=== PATIENT | female | born 1955 | race Caucasian/White ===

== ENCOUNTER → 2016-08-08 | Outpatient (CLI) | payer MEDICARE, MEDICAID ==
[~2016-08-08] MED LIST: ACCUNEB 0.0.63 MG/3 INH; ALLOPURINOL100 MG PO; ALVESCO80 MCG/ACT; ALVESCO80 MCG/ACT IH; AMOXICILLIN500 M2 PO; AMOXICILLIN500 MG PO; ASTELIN NASAL S30 ML NAS; ATIVAN1 MG PO; AVELOX400 MG PO; BENADRYL25 M2 PO; CARDIZEM CD240 MG PO; CELEXA40 MG PO; CEPHALEXIN500 M1 PO; CHLOR-A-TAB4 MG PO; COMPAZINE10 MG; COUMADIN3 MG PO; COUMADIN5 M2 PO; Coumadin5 MG PO; DIFLUCAN200 MG PO; FIORICET 325 MG1 TAB PO; Fioricet 325 MG1 TAB PO; HYCODAN/HYDROMET5 ML PO; IMITREX100 MG; KEFLEX 500 MG E2 CAP PO; KLOR-CON; KLOR-CON M1010 MEQ PO; LOSARTAN POTASS25 MG PO; MAG-OX 400400 MG; MAGOX 400241.3 MG PO; MEDROL DOSEPAK4 MG PO; METOPROLOL SUCC50 MG PO; Nizoral 2%15 GM PO; OMEPRAZOLE40 MG; PROVENTIL0.09 MG/AC; PROVENTIL0.09 MG/AC IH; RANITIDINE300 MG PO; REQUIP0.5 MG; VICODIN 5/500 505 MG PO; VICODIN 500 MG-1 TAB PO; VISTARIL50 MG; VOLTAREN GEL1% TP; WARFARIN SODIUM4 MG; WELLBUTRIN XL300 MG PO; ZOCOR40 MG; ZYRTEC; ZYRTEC10 MG PO; [UNRECOGNIZED DRUG - OTHER] TP
[2016-08-08 09:33] LABS: BASO % 0.7 % (0.0-1.0); EOS # 0.2 10*3/uL (0.0-0.4); EOS % 3.5 % (1.0-4.0); HEMATOCRIT 40.3 % (37.0-47.0); HEMOGLOBIN 12.8 g/dl (12.0-16.0); LYMPH # 1.9 10*3/uL (1.3-4.4); LYMPH % 33.7 % (27.0-41.0); MEAN CELL VOLUME 95.7 fl (81.0-99.0); MEAN CORPUSCULAR HGB 30.4 pg (27.0-31.0); MEAN CORPUSCULAR HGB CONC 31.8 g/dl (33.0-37.0); MEAN PLATELET VOLUME 10.1 fl (9.6-12.3); MONO # 0.6 10*3/uL (0.1-1.0); MONO % 10.4 % (3.0-9.0); NEUT # 2.8 10*3/uL (2.3-7.9); NEUT % 51.5 % (47.0-73.0); PLATELET COUNT AUTOMATED 223 10*3/uL (130-400); RED BLOOD COUNT 4.21 10*6/uL (4.10-5.10); RED CELL DISTRI WIDTH 14.4 % (0-14.5); WHITE BLOOD COUNT 5.5 10*3/uL (4.8-10.8)
[2016-08-08 10:00] LABS: HEMOGLOBIN A1c 5.7 % (4.8-5.6)
[2016-08-08 10:05] LABS: ALBUMIN 3.7 gm/dl (3.1-4.5); ALKALINE PHOSPHATASE 74 U/L (45-117); BILIRUBIN, DIRECT < 0.1 mg/dL (0.0-0.2); BILIRUBIN, TOTAL 0.2 mg/dl (0.2-1.0); BUN 27 mg/dl (7-24); CARBON DIOXIDE 28 mmol/L (21-32); CHLORIDE 107 mmol/L (98-107); CHOLESTEROL 236 mg/dL (<200); EST GLOM FILT AFRICAN AMERICAN 57 ml/min; GLUCOSE 109 mg/dL (65-99); HDL CHOLESTEROL 37 mg/dl (40-60); LDL CHOLESTEROL 151 mg/dL (9-159); SGOT/AST 21 IU/L (3-35); SGPT/ALT 27 U/L (12-78); SODIUM 142 mmol/L (136-145); THYROXINE (T4) TOTAL 8.3 ug/dl (4.8-13.9); TOTAL PROTEIN 7.2 gm/dL (6.4-8.2); TRIGLYCERIDES 242 mg/dl (<150); VLDL CHOLESTEROL 48 mg/dL (6-40)
== END | disposition home or self-care (01) ==
LOC: LAB 08:59
PROVIDERS: Family Medicine
DX: E11.9 Type 2 diabetes mellitus without complications (principal); N28.9 Disorder of kidney and ureter, unspecified; E78.00 Pure hypercholesterolemia, unspecified

== ENCOUNTER → 2016-11-17 | Outpatient (CLI) | payer MEDICARE, MEDICAID ==
[2016-11-17 13:03] LABS: BASO # 0.1 10*3/uL (0.0-0.1); BASO % 0.8 % (0.0-1.0); EOS # 0.4 10*3/uL (0.0-0.4); EOS % 6.4 % (1.0-4.0); HEMATOCRIT 39.3 % (37.0-47.0); HEMOGLOBIN 13.1 g/dl (12.0-16.0); LYMPH # 1.3 10*3/uL (1.3-4.4); LYMPH % 21.9 % (27.0-41.0); MEAN CORPUSCULAR HGB 31.3 pg (27.0-31.0); MEAN CORPUSCULAR HGB CONC 33.3 g/dl (33.0-37.0); MEAN PLATELET VOLUME 9.7 fl (9.6-12.3); MONO # 0.6 10*3/uL (0.1-1.0); MONO % 10.1 % (3.0-9.0); NEUT # 3.6 10*3/uL (2.3-7.9); NEUT % 60.5 % (47.0-73.0); PLATELET COUNT AUTOMATED 230 10*3/uL (130-400); RED BLOOD COUNT 4.18 10*6/uL (4.10-5.10); RED CELL DISTRI WIDTH 14.7 % (0-14.5); WHITE BLOOD COUNT 5.9 10*3/uL (4.8-10.8)
[2016-11-17 13:31] LABS: ALBUMIN 4.1 gm/dl (3.1-4.5); BILIRUBIN, DIRECT 0.1 mg/dL (0.0-0.2); BILIRUBIN, TOTAL 0.6 mg/dl (0.2-1.0); POTASSIUM 4.4 mmol/L (3.5-5.1); TOTAL PROTEIN 7.5 gm/dL (6.4-8.2)
[2016-11-17 13:53] LABS: HEMOGLOBIN A1c 5.6 % (4.8-5.6)
== END | disposition home or self-care (01) ==
LOC: LAB 12:42
PROVIDERS: Family Medicine
DX: E11.9 Type 2 diabetes mellitus without complications (principal); N28.9 Disorder of kidney and ureter, unspecified

== ENCOUNTER → 2016-11-20 | Outpatient (CLI) | payer MEDICARE, MEDICAID | END | disposition home or self-care (01) | LOC: CARD 00:11 | DX: I48.0 Paroxysmal atrial fibrillation (principal); I42.8 Other cardiomyopathies; E78.2 Mixed hyperlipidemia; I08.2 Rheumatic disorders of both aortic and tricuspid valves; Z95.810 Presence of automatic (implantable) cardiac defibrillator ==

== ENCOUNTER → 2017-02-20 | Outpatient (CLI) | payer MEDICARE, MEDICAID ==
[2017-02-20 12:21] LABS: BILIRUBIN NEGATIVE (NEGATIVE); BLOOD NEGATIVE (NEGATIVE); CLARITY SL CLOUDY (CLEAR); COLOR YELLOW (YELLOW); GLUCOSE NEGATIVE (NEGATIVE); KETONE NEGATIVE (NEGATIVE); LEUKO ESTERASE NEGATIVE (NEGATIVE); NITRITE NEGATIVE (NEGATIVE); PROTEIN NEGATIVE (NEGATIVE); SPECIFIC GRAVITY <= 1.005 (1.005-1.030); UROBILINOGEN 0.2 E.U./dl (0.2-1.0)
[2017-02-20 12:26] LABS: BASO % 0.7 % (0.0-1.0); EOS # 0.5 10*3/uL (0.0-0.4); EOS % 8.8 % (1.0-4.0); HEMATOCRIT 38.5 % (37.0-47.0); HEMOGLOBIN 12.7 g/dl (12.0-16.0); LYMPH # 1.5 10*3/uL (1.3-4.4); LYMPH % 26.1 % (27.0-41.0); MEAN CELL VOLUME 92.8 fl (81.0-99.0); MEAN CORPUSCULAR HGB 30.6 pg (27.0-31.0); MEAN PLATELET VOLUME 9.8 fl (9.6-12.3); MONO # 0.5 10*3/uL (0.1-1.0); MONO % 8.2 % (3.0-9.0); NEUT # 3.1 10*3/uL (2.3-7.9); NEUT % 55.8 % (47.0-73.0); PLATELET COUNT AUTOMATED 216 10*3/uL (130-400); RED BLOOD COUNT 4.15 10*6/uL (4.10-5.10); WHITE BLOOD COUNT 5.6 10*3/uL (4.8-10.8)
[2017-02-20 12:38] LABS: ALBUMIN 3.7 gm/dl (3.1-4.5); BUN 18 mg/dl (7-24); CARBON DIOXIDE 27 mmol/L (21-32); CHLORIDE 102 mmol/L (98-107); EST GLOM FILT AFRICAN AMERICAN > 60 ml/min; GLUCOSE 97 mg/dL (65-99); MAGNESIUM 1.9 mg/dL (1.5-2.1); PHOSPHOROUS 3.3 mg/dL (2.5-4.9); POTASSIUM 4.5 mmol/L (3.5-5.1); SODIUM 136 mmol/L (136-145)
[2017-02-20 12:40] LABS: URINE TP/CRE RATIO 0.1 (<0.21)
[2017-02-20 12:47] LABS: BACTERIA 1+; URINE REFLEX COMMENT NO (NO)
[2017-02-20 13:37] LABS: PTH INTACT 20.1 pg/mL (14.0-72.0)
== END | disposition home or self-care (01) ==
LOC: LAB 11:33
PROVIDERS: Internal Medicine Nephrology
DX: N18.3 Chronic kidney disease, stage 3 (moderate) (principal); N25.81 Secondary hyperparathyroidism of renal origin; Z79.899 Other long term (current) drug therapy

== ENCOUNTER → 2017-02-28 | Outpatient (CLI) | payer MEDICARE, MEDICAID | END | disposition home or self-care (01) | LOC: US 02:49 | DX: N18.3 Chronic kidney disease, stage 3 (moderate) (principal) ==

== ENCOUNTER → 2017-08-08 | Outpatient (CLI) | payer MEDICARE, MEDICAID ==
[2017-08-08 10:34] LABS: BASO % 0.9 % (0.0-1.0); EOS # 0.2 10*3/uL (0.0-0.4); EOS % 4.3 % (1.0-4.0); HEMATOCRIT 40.3 % (37.0-47.0); HEMOGLOBIN 13.1 g/dl (12.0-16.0); LYMPH # 1.4 10*3/uL (1.3-4.4); LYMPH % 31.7 % (27.0-41.0); MEAN CELL VOLUME 93.5 fl (81.0-99.0); MEAN CORPUSCULAR HGB 30.4 pg (27.0-31.0); MEAN CORPUSCULAR HGB CONC 32.5 g/dl (33.0-37.0); MEAN PLATELET VOLUME 9.8 fl (9.6-12.3); MONO # 0.4 10*3/uL (0.1-1.0); MONO % 9.7 % (3.0-9.0); NEUT # 2.4 10*3/uL (2.3-7.9); NEUT % 53.2 % (47.0-73.0); PLATELET COUNT AUTOMATED 223 10*3/uL (130-400); RED BLOOD COUNT 4.31 10*6/uL (4.10-5.10); RED CELL DISTRI WIDTH 14.5 % (0-14.5); WHITE BLOOD COUNT 4.4 10*3/uL (4.8-10.8)
[2017-08-08 10:51] LABS: ALBUMIN 3.8 gm/dl (3.1-4.5); ALKALINE PHOSPHATASE 72 U/L (45-117); BILIRUBIN, DIRECT < 0.1 mg/dL (0.0-0.2); BUN 28 mg/dl (7-24); CHLORIDE 105 mmol/L (98-107); CHOLESTEROL 236 mg/dL (<200); CREATININE 1.26 mg/dL (0.55-1.02); HDL CHOLESTEROL 44 mg/dl (40-60); LDL CHOLESTEROL 151 mg/dL (9-159); POTASSIUM 4.3 mmol/L (3.5-5.1); SGOT/AST 21 IU/L (3-35); SGPT/ALT 25 U/L (12-78); SODIUM 139 mmol/L (136-145); TOTAL PROTEIN 7.7 gm/dL (6.4-8.2); TRIGLYCERIDES 203 mg/dl (<150); VLDL CHOLESTEROL 41 mg/dL (6-40)
== END | disposition home or self-care (01) ==
LOC: LAB 09:54
PROVIDERS: Family Medicine
DX: N28.9 Disorder of kidney and ureter, unspecified (principal); E11.9 Type 2 diabetes mellitus without complications; E55.9 Vitamin D deficiency, unspecified

== ENCOUNTER 2017-10-14 09:26 | Emergency (ER) | payer MEDICARE, MEDICAID ==
[~2017-10-14] VITALS: Ht 160 cm; Wt 99.8 kg
[2017-10-14 09:37] VITALS: BP 135/54
[2017-10-14] MEDS ORDERED: NORCO 5-325 TA1 EACH PO (12:07)
[2017-10-14] MEDS ORDERED: ULTRAM50 MG PO (12:15)
== END 2017-10-14 12:13 | disposition home or self-care (01) ==
LOC: ED 09:26
DX: S42.401A Unspecified fracture of lower end of right humerus, initial encounter for closed fracture (principal); S63.591A Other specified sprain of right wrist, initial encounter; S80.12XA Contusion of left lower leg, initial encounter; Z90.710 Acquired absence of both cervix and uterus; Z90.49 Acquired absence of other specified parts of digestive tract; Z98.890 Other specified postprocedural states; Z79.899 Other long term (current) drug therapy; Z88.1 Allergy status to other antibiotic agents; Z79.01 Long term (current) use of anticoagulants; Z88.8 Allergy status to other drugs, medicaments and biological substances; W00.0XXA Fall on same level due to ice and snow, initial encounter; Y93.89 Activity, other specified; Y92.89 Other specified places as the place of occurrence of the external cause; Y99.9 Unspecified external cause status

== ENCOUNTER → 2017-10-16 | Outpatient (CLI) | payer MEDICARE, MEDICAID ==
[~2017-10-16] MED LIST changes: +NORCO 5-325 TA1 EACH PO; +ULTRAM50 MG PO
== END | disposition home or self-care (01) ==
LOC: CT 13:02
DX: S42.401A Unspecified fracture of lower end of right humerus, initial encounter for closed fracture (principal); M25.421 Effusion, right elbow; X58.XXXA Exposure to other specified factors, initial encounter; Y93.89 Activity, other specified; Y92.89 Other specified places as the place of occurrence of the external cause; Y99.8 Other external cause status

== ENCOUNTER → 2017-10-25 | Outpatient (CLI) | payer MEDICARE, MEDICAID ==
[2017-10-25 17:01] LABS: BUN 21 mg/dl (7-24); CHLORIDE 107 mmol/L (98-107); CREATININE 1.09 mg/dL (0.55-1.02); SODIUM 142 mmol/L (136-145)
== END | disposition home or self-care (01) ==
LOC: LAB 16:24
PROVIDERS: Family Medicine
DX: N18.9 Chronic kidney disease, unspecified (principal)

== ENCOUNTER → 2017-12-10 | Outpatient (CLI) | payer MEDICARE, MEDICAID | END | disposition home or self-care (01) | LOC: LAB 14:05 | DX: E11.9 Type 2 diabetes mellitus without complications (principal); E55.9 Vitamin D deficiency, unspecified; M19.042 Primary osteoarthritis, left hand; M19.041 Primary osteoarthritis, right hand ==

== ENCOUNTER → 2018-05-03 | Outpatient (CLI) | payer OTHER ==
[~2018-05-03] MED LIST changes: +DOXYCYCLINE100 M3 PO
== END | disposition home or self-care (01) ==
LOC: US 12:57
DX: M79.641 Pain in right hand (principal)

== ENCOUNTER → 2018-06-21 | Outpatient (CLI) | payer OTHER ==
[2018-06-21 11:54] LABS: BASO % 0.9 % (0.0-1.0); EOS # 0.3 10*3/uL (0.0-0.4); EOS % 6.5 % (1.0-4.0); HEMATOCRIT 40.4 % (37.0-47.0); HEMOGLOBIN 12.6 g/dl (12.0-16.0); LYMPH # 1.2 10*3/uL (1.3-4.4); LYMPH % 26.2 % (27.0-41.0); MEAN CELL VOLUME 97.1 fl (81.0-99.0); MEAN CORPUSCULAR HGB 30.3 pg (27.0-31.0); MEAN CORPUSCULAR HGB CONC 31.2 g/dl (33.0-37.0); MEAN PLATELET VOLUME 9.5 fl (9.6-12.3); MONO # 0.5 10*3/uL (0.1-1.0); MONO % 11.2 % (3.0-9.0); NEUT # 2.6 10*3/uL (2.3-7.9); NEUT % 54.8 % (47.0-73.0); PLATELET COUNT AUTOMATED 234 10*3/uL (130-400); RED BLOOD COUNT 4.16 10*6/uL (4.10-5.10); RED CELL DISTRI WIDTH 14.6 % (0-14.5); WHITE BLOOD COUNT 4.7 10*3/uL (4.8-10.8)
[2018-06-21 12:09] LABS: ALBUMIN 3.5 gm/dl (3.1-4.5); ALKALINE PHOSPHATASE 72 U/L (45-117); BILIRUBIN, DIRECT < 0.1 mg/dL (0.0-0.2); BUN 21 mg/dl (7-24); CHLORIDE 106 mmol/L (98-107); CREATININE 1.16 mg/dL (0.55-1.02); FREE T4 0.89 ng/dl (0.76-1.46); POTASSIUM 4.2 mmol/L (3.5-5.1); SGOT/AST 24 IU/L (3-35); SGPT/ALT 31 U/L (12-78); SODIUM 140 mmol/L (136-145); TOTAL PROTEIN 7.5 gm/dL (6.4-8.2)
== END | disposition home or self-care (01) ==
LOC: LAB 10:58
PROVIDERS: Family Medicine
DX: E11.9 Type 2 diabetes mellitus without complications (principal); N28.9 Disorder of kidney and ureter, unspecified; E55.9 Vitamin D deficiency, unspecified; E03.9 Hypothyroidism, unspecified; Z79.01 Long term (current) use of anticoagulants

== ENCOUNTER → 2018-07-03 | Outpatient (CLI) | payer OTHER ==
[2018-07-03 11:54] LABS: INTERNATIONAL NORM RATIO 3.2 (2.0-3.5)
== END | disposition home or self-care (01) ==
LOC: LAB 10:43
PROVIDERS: Internal Medicine Clinical Cardiac Electrophysiology
DX: I48.0 Paroxysmal atrial fibrillation (principal)

== ENCOUNTER → 2018-07-30 | Outpatient (CLI) | payer OTHER ==
[2018-07-30 12:49] LABS: INTERNATIONAL NORM RATIO 2.4 (2.0-3.5)
== END | disposition home or self-care (01) ==
LOC: LAB 09:16
PROVIDERS: Internal Medicine Clinical Cardiac Electrophysiology
DX: I48.0 Paroxysmal atrial fibrillation (principal)

== ENCOUNTER → 2018-08-06 | Outpatient (CLI) | payer OTHER ==
[2018-08-06 11:34] LABS: INTERNATIONAL NORM RATIO 1.5 (2.0-3.5)
== END | disposition home or self-care (01) ==
LOC: LAB 02:13
PROVIDERS: Internal Medicine Clinical Cardiac Electrophysiology
DX: I48.0 Paroxysmal atrial fibrillation (principal)

== ENCOUNTER → 2018-12-26 | Outpatient (CLI) | payer OTHER ==
[2018-12-26 14:15] LABS: BASO # 0.1 10*3/uL (0.0-0.1); BASO % 1.2 % (0.0-1.0); EOS # 0.3 10*3/uL (0.0-0.4); EOS % 5.5 % (1.0-4.0); HEMATOCRIT 42.5 % (37.0-47.0); HEMOGLOBIN 13.5 g/dl (12.0-16.0); LYMPH # 1.7 10*3/uL (1.3-4.4); LYMPH % 32.9 % (27.0-41.0); MEAN CELL VOLUME 95.7 fl (81.0-99.0); MEAN CORPUSCULAR HGB 30.4 pg (27.0-31.0); MEAN CORPUSCULAR HGB CONC 31.8 g/dl (33.0-37.0); MEAN PLATELET VOLUME 9.9 fl (9.6-12.3); MONO # 0.5 10*3/uL (0.1-1.0); MONO % 10.3 % (3.0-9.0); NEUT # 2.5 10*3/uL (2.3-7.9); NEUT % 49.9 % (47.0-73.0); PLATELET COUNT AUTOMATED 240 10*3/uL (130-400); RED BLOOD COUNT 4.44 10*6/uL (4.10-5.10); RED CELL DISTRI WIDTH 14.2 % (0-14.5); WHITE BLOOD COUNT 5.1 10*3/uL (4.8-10.8)
[2018-12-26 14:41] LABS: ALBUMIN 4.1 gm/dl (3.1-4.5); ALKALINE PHOSPHATASE 74 U/L (45-117); BILIRUBIN, DIRECT < 0.1 mg/dL (0.0-0.2); BUN 25 mg/dl (7-24); CHLORIDE 106 mmol/L (98-107); CHOLESTEROL 232 mg/dL (<200); CREATININE 1.11 mg/dL (0.55-1.02); HDL CHOLESTEROL 46 mg/dl (40-60); LDL CHOLESTEROL 144 mg/dL (9-159); POTASSIUM 4.2 mmol/L (3.5-5.1); SGOT/AST 24 IU/L (3-35); SGPT/ALT 28 U/L (12-78); SODIUM 138 mmol/L (136-145); THYROXINE (T4) TOTAL 7.8 ug/dl (4.8-13.9); TOTAL PROTEIN 8.2 gm/dL (6.4-8.2); TRIGLYCERIDES 210 mg/dl (<150); VLDL CHOLESTEROL 42 mg/dL (6-40)
== END | disposition home or self-care (01) ==
LOC: LAB 13:10
PROVIDERS: Family Medicine
DX: M47.816 Spondylosis without myelopathy or radiculopathy, lumbar region (principal); E55.9 Vitamin D deficiency, unspecified; I95.9 Hypotension, unspecified; R73.9 Hyperglycemia, unspecified; R25.2 Cramp and spasm; Z79.899 Other long term (current) drug therapy

== ENCOUNTER → 2019-04-07 | Outpatient (CLI) | payer MEDICARE, MEDICAID ==
[2019-04-07 10:24] LABS: BILIRUBIN NEGATIVE (NEGATIVE); BLOOD TRACE-LYSED (NEGATIVE); CLARITY SL CLOUDY (CLEAR); COLOR YELLOW (YELLOW); GLUCOSE NEGATIVE (NEGATIVE); KETONE NEGATIVE (NEGATIVE); LEUKO ESTERASE 2+ (NEGATIVE); NITRITE NEGATIVE (NEGATIVE); SPECIFIC GRAVITY <= 1.005 (1.005-1.030); UROBILINOGEN 0.2 E.U./dl (0.2-1.0)
[2019-04-07 10:32] LABS: BASO # 0.1 10*3/uL (0.0-0.1); BASO % 1.4 % (0.0-1.0); EOS # 0.4 10*3/uL (0.0-0.4); HEMATOCRIT 41.8 % (37.0-47.0); HEMOGLOBIN 13.3 g/dl (12.0-16.0); LYMPH # 1.2 10*3/uL (1.3-4.4); LYMPH % 24.4 % (27.0-41.0); MEAN CELL VOLUME 95.9 fl (81.0-99.0); MEAN CORPUSCULAR HGB 30.5 pg (27.0-31.0); MEAN CORPUSCULAR HGB CONC 31.8 g/dl (33.0-37.0); MEAN PLATELET VOLUME 9.6 fl (9.6-12.3); MONO # 0.5 10*3/uL (0.1-1.0); MONO % 9.8 % (3.0-9.0); NEUT # 2.8 10*3/uL (2.3-7.9); PLATELET COUNT AUTOMATED 243 10*3/uL (130-400); RED BLOOD COUNT 4.36 10*6/uL (4.10-5.10); RED CELL DISTRI WIDTH 14.6 % (0-14.5)
[2019-04-07 10:38] LABS: BACTERIA 2+; WBC TNTC wbc/hpf (0-5)
[2019-04-07 10:46] LABS: URINE CREATININE RANDOM 39.1 mg/dL
[2019-04-07 10:58] LABS: ALBUMIN 4.1 gm/dl (3.1-4.5); CREATININE 1.15 mg/dL (0.55-1.02); PHOSPHOROUS 3.1 mg/dL (2.5-4.9); POTASSIUM 4.2 mmol/L (3.5-5.1)
[2019-04-07 11:18] LABS: PTH INTACT 104.1 pg/mL (18.5-88.0); VITAMIN D, 25-HYDROXY 29.8 ng/mL (30-100)
== END | disposition home or self-care (01) ==
LOC: LAB 09:43
PROVIDERS: Internal Medicine Nephrology
DX: N25.81 Secondary hyperparathyroidism of renal origin (principal); N18.3 Chronic kidney disease, stage 3 (moderate)

== ENCOUNTER 2019-05-01 12:40 | Emergency (ER) | payer MEDICARE, MEDICAID ==
[~2019-05-01] VITALS: Ht 160 cm; Wt 108.9 kg
[2019-05-01 12:44] VITALS: BP 132/63
[2019-05-01 13:08] LABS: BASO # 0.1 10*3/uL (0.0-0.1); BASO % 0.7 % (0.0-1.0); EOS # 0.7 10*3/uL (0.0-0.4); HEMOGLOBIN 13.2 g/dl (12.0-16.0); LYMPH # 1.1 10*3/uL (1.3-4.4); LYMPH % 15.6 % (27.0-41.0); MEAN CELL VOLUME 95.6 fl (81.0-99.0); MEAN CORPUSCULAR HGB 30.8 pg (27.0-31.0); MEAN CORPUSCULAR HGB CONC 32.2 g/dl (33.0-37.0); MEAN PLATELET VOLUME 9.4 fl (9.6-12.3); MONO # 0.5 10*3/uL (0.1-1.0); MONO % 7.1 % (3.0-9.0); NEUT # 4.5 10*3/uL (2.3-7.9); NEUT % 66.3 % (47.0-73.0); PLATELET COUNT AUTOMATED 222 10*3/uL (130-400); RED BLOOD COUNT 4.29 10*6/uL (4.10-5.10); RED CELL DISTRI WIDTH 14.6 % (0-14.5); WHITE BLOOD COUNT 6.8 10*3/uL (4.8-10.8)
[2019-05-01 13:22] LABS: ALBUMIN 3.6 gm/dl (3.1-4.5); ALKALINE PHOSPHATASE 84 U/L (45-117); BUN 18 mg/dl (7-24); CHLORIDE 106 mmol/L (98-107); CREATININE 1.24 mg/dL (0.55-1.02); POTASSIUM 3.7 mmol/L (3.5-5.1); SGOT/AST 18 IU/L (3-35); SGPT/ALT 26 U/L (12-78); SODIUM 140 mmol/L (136-145); TOTAL PROTEIN 7.7 gm/dL (6.4-8.2)
[2019-05-01 13:29] LABS: TROPONIN I < 0.015 ng/ml (<0.045)
[2019-05-01 13:32] LABS: ACT PARTIAL THROMBO TIME 43.4 SECONDS (20.0-32.1); INTERNATIONAL NORM RATIO 2.9 (2.0-3.5)
[2019-05-01] MEDS ORDERED: PREDNISONE50 MG PO (15:26)
[2019-05-01] MEDS ORDERED: TESSALON PERLE100 MG PO (15:33)
[2019-05-01] MEDS ORDERED: PROVENTIL HFA6.7 GM INH (15:33)
[2019-05-01] MEDS ORDERED: Ipratropium Brom3 ML INH (15:33)
== END 2019-05-01 15:41 | disposition home or self-care (01) ==
LOC: ED 12:40
PROVIDERS: Emergency Medicine
DX: J20.9 Acute bronchitis, unspecified (principal); J45.909 Unspecified asthma, uncomplicated; K21.9 Gastro-esophageal reflux disease without esophagitis; E66.9 Obesity, unspecified; Z88.8 Allergy status to other drugs, medicaments and biological substances; Z88.1 Allergy status to other antibiotic agents; Z91.041 Radiographic dye allergy status; Z79.01 Long term (current) use of anticoagulants; Z79.899 Other long term (current) drug therapy; Z90.710 Acquired absence of both cervix and uterus; Z90.49 Acquired absence of other specified parts of digestive tract

== ENCOUNTER → 2019-05-29 | Outpatient (CLI) | payer MEDICARE, MEDICAID ==
[~2019-05-29] MED LIST changes: +Ipratropium Brom3 ML INH; +PREDNISONE50 MG PO; +PROVENTIL HFA6.7 GM INH; +TESSALON PERLE100 MG PO
[2019-05-29 10:45] LABS: INTERNATIONAL NORM RATIO 2.3 (2.0-3.5)
== END | disposition home or self-care (01) ==
LOC: LAB 09:35
PROVIDERS: Internal Medicine Clinical Cardiac Electrophysiology
DX: I48.0 Paroxysmal atrial fibrillation (principal)

== ENCOUNTER → 2019-06-09 | Outpatient (CLI) | payer MEDICARE, MEDICAID ==
[2019-06-09 14:21] LABS: BASO # 0.1 10*3/uL (0.0-0.1); BASO % 1.3 % (0.0-1.0); EOS # 0.4 10*3/uL (0.0-0.4); EOS % 7.6 % (1.0-4.0); HEMATOCRIT 41.6 % (37.0-47.0); HEMOGLOBIN 13.2 g/dl (12.0-16.0); LYMPH # 1.4 10*3/uL (1.3-4.4); LYMPH % 26.3 % (27.0-41.0); MEAN CELL VOLUME 95.9 fl (81.0-99.0); MEAN CORPUSCULAR HGB 30.4 pg (27.0-31.0); MEAN CORPUSCULAR HGB CONC 31.7 g/dl (33.0-37.0); MEAN PLATELET VOLUME 9.9 fl (9.6-12.3); MONO # 0.7 10*3/uL (0.1-1.0); MONO % 12.5 % (3.0-9.0); NEUT # 2.8 10*3/uL (2.3-7.9); NEUT % 51.9 % (47.0-73.0); PLATELET COUNT AUTOMATED 251 10*3/uL (130-400); RED BLOOD COUNT 4.34 10*6/uL (4.10-5.10); RED CELL DISTRI WIDTH 14.1 % (0-14.5); WHITE BLOOD COUNT 5.4 10*3/uL (4.8-10.8)
[2019-06-09 14:35] LABS: INTERNATIONAL NORM RATIO 3.2 (2.0-3.5)
[2019-06-09 14:49] LABS: ALBUMIN 3.8 gm/dl (3.1-4.5); ALKALINE PHOSPHATASE 83 U/L (45-117); BILIRUBIN, DIRECT 0.1 mg/dL (0.0-0.2); BUN 23 mg/dl (7-24); CHLORIDE 106 mmol/L (98-107); CREATININE 1.07 mg/dL (0.55-1.02); SGOT/AST 22 IU/L (3-35); SGPT/ALT 27 U/L (12-78); SODIUM 138 mmol/L (136-145); TOTAL PROTEIN 7.8 gm/dL (6.4-8.2)
== END | disposition home or self-care (01) ==
LOC: LAB 13:16
PROVIDERS: Family Medicine; Internal Medicine Clinical Cardiac Electrophysiology
DX: I48.0 Paroxysmal atrial fibrillation (principal); I10 Essential (primary) hypertension; E11.9 Type 2 diabetes mellitus without complications

== ENCOUNTER → 2019-06-25 | Outpatient (CLI) | payer MEDICARE, MEDICAID | END | disposition home or self-care (01) | LOC: CARD 09:46 | DX: I08.1 Rheumatic disorders of both mitral and tricuspid valves (principal); I42.0 Dilated cardiomyopathy; I10 Essential (primary) hypertension; R07.9 Chest pain, unspecified; Z95.2 Presence of prosthetic heart valve ==

== ENCOUNTER → 2019-11-19 | Outpatient (CLI) | payer MEDICARE, MEDICAID ==
[2019-11-19 14:54] LABS: INTERNATIONAL NORM RATIO 5.4 (2.0-3.5)
== END | disposition home or self-care (01) ==
LOC: LAB 12:44
PROVIDERS: Internal Medicine Clinical Cardiac Electrophysiology
DX: Z79.01 Long term (current) use of anticoagulants (principal); Z95.2 Presence of prosthetic heart valve

== ENCOUNTER → 2020-01-07 | Outpatient (CLI) | payer OTHER, MEDICAID ==
[~2020-01-07] MED LIST changes: +CYCLOBENZAPRINE10 MG PO
[2020-01-07 13:53] LABS: INTERNATIONAL NORM RATIO 4.7 (2.0-3.5)
== END | disposition home or self-care (01) ==
LOC: LAB 11:59
PROVIDERS: Internal Medicine Clinical Cardiac Electrophysiology
DX: Z79.01 Long term (current) use of anticoagulants (principal); Z95.2 Presence of prosthetic heart valve

== ENCOUNTER 2020-01-20 12:33 | Emergency (ER) | payer OTHER, MEDICAID ==
[~2020-01-20] VITALS: Ht 157.4 cm; Wt 111.1 kg
[~2020-01-20 12:33] MED LIST changes: -CYCLOBENZAPRINE10 MG PO
[2020-01-20 12:55] VITALS: BP 120/63
[2020-01-20] MEDS ORDERED: CYCLOBENZAPRINE10 MG PO (17:36)
== END 2020-01-20 17:34 | disposition home or self-care (01) ==
LOC: ED 12:33
DX: S89.91XA Unspecified injury of right lower leg, initial encounter (principal); M79.601 Pain in right arm; F17.200 Nicotine dependence, unspecified, uncomplicated; Z88.8 Allergy status to other drugs, medicaments and biological substances; Z88.1 Allergy status to other antibiotic agents; Z79.899 Other long term (current) drug therapy; W18.39XA Other fall on same level, initial encounter; Y93.89 Activity, other specified; Y92.89 Other specified places as the place of occurrence of the external cause; Y99.8 Other external cause status

== ENCOUNTER → 2020-02-11 | Outpatient (CLI) | payer MEDICARE, MEDICAID ==
[~2020-02-11] MED LIST changes: +CYCLOBENZAPRINE10 MG PO
[2020-02-11 14:00] LABS: INTERNATIONAL NORM RATIO 6.3 (2.0-3.5)
== END | disposition home or self-care (01) ==
LOC: LAB 12:33
PROVIDERS: Internal Medicine Clinical Cardiac Electrophysiology
DX: Z95.2 Presence of prosthetic heart valve (principal)

== ENCOUNTER → 2020-02-25 | Outpatient (CLI) | payer OTHER, MEDICAID ==
[2020-02-25 16:32] LABS: BASO # 0.1 10*3/uL (0.0-0.1); EOS # 0.3 10*3/uL (0.0-0.4); EOS % 6.6 % (1.0-4.0); HEMATOCRIT 39.6 % (37.0-47.0); LYMPH # 1.4 10*3/uL (1.3-4.4); LYMPH % 27.1 % (27.0-41.0); MEAN CELL VOLUME 95.4 fl (81.0-99.0); MEAN CORPUSCULAR HGB 30.1 pg (27.0-31.0); MEAN CORPUSCULAR HGB CONC 31.6 g/dl (33.0-37.0); MEAN PLATELET VOLUME 9.3 fl (9.6-12.3); MONO # 0.3 10*3/uL (0.1-1.0); MONO % 6.4 % (3.0-9.0); NEUT % 58.5 % (47.0-73.0); PLATELET COUNT AUTOMATED 231 10*3/uL (130-400); RED BLOOD COUNT 4.15 10*6/uL (4.10-5.10); RED CELL DISTRI WIDTH 13.9 % (0-14.5); WHITE BLOOD COUNT 5.2 10*3/uL (4.8-10.8)
[2020-02-25 16:37] LABS: BILIRUBIN NEGATIVE (NEGATIVE); BLOOD NEGATIVE (NEGATIVE); CLARITY CLEAR (CLEAR); COLOR YELLOW (YELLOW); GLUCOSE NEGATIVE (NEGATIVE); KETONE NEGATIVE (NEGATIVE); LEUKO ESTERASE TRACE (NEGATIVE); NITRITE NEGATIVE (NEGATIVE); SPECIFIC GRAVITY 1.015 (1.005-1.030); UROBILINOGEN 0.2 E.U./dl (0.2-1.0)
[2020-02-25 16:43] LABS: BACTERIA 2+; RBC 0-2 rbc/hpf (0-2)
[2020-02-25 16:44] LABS: ALBUMIN 3.5 gm/dl (3.1-4.5); CREATININE 1.14 mg/dL (0.55-1.02)
[2020-02-25 17:17] LABS: PTH INTACT 75.3 pg/mL (18.5-88.0); VITAMIN D, 25-HYDROXY 26.8 ng/mL (30-100)
[2020-02-25 18:32] LABS: INTERNATIONAL NORM RATIO 6.9 (2.0-3.5)
== END | disposition home or self-care (01) ==
LOC: LAB 16:04
PROVIDERS: Internal Medicine Clinical Cardiac Electrophysiology; Internal Medicine Nephrology
DX: N18.3 Chronic kidney disease, stage 3 (moderate) (principal); Z95.2 Presence of prosthetic heart valve; Z79.01 Long term (current) use of anticoagulants

== ENCOUNTER → 2020-03-11 | Outpatient (CLI) | payer OTHER, MEDICAID ==
[2020-03-11 16:42] LABS: INTERNATIONAL NORM RATIO 1.5 (2.0-3.5)
== END | disposition home or self-care (01) ==
LOC: LAB 15:16
PROVIDERS: Internal Medicine Clinical Cardiac Electrophysiology
DX: Z95.2 Presence of prosthetic heart valve (principal)

== ENCOUNTER → 2020-03-18 | Outpatient (CLI) | payer OTHER, MEDICAID ==
[2020-03-18 12:10] LABS: INTERNATIONAL NORM RATIO 2.1 (2.0-3.5)
== END | disposition home or self-care (01) ==
LOC: LAB 11:19
PROVIDERS: ATTEND Internal Medicine Clinical Cardiac Electrophysiology
DX: Z79.01 Long term (current) use of anticoagulants (principal)

== ENCOUNTER → 2020-03-23 | Outpatient (CLI) | payer OTHER, MEDICAID ==
[2020-03-23 16:26] LABS: BASO # 0.1 10*3/uL (0.0-0.1); BASO % 1.3 % (0.0-1.0); EOS # 0.3 10*3/uL (0.0-0.4); EOS % 5.8 % (1.0-4.0); HEMATOCRIT 41.1 % (37.0-47.0); LYMPH # 1.2 10*3/uL (1.3-4.4); LYMPH % 25.1 % (27.0-41.0); MEAN CELL VOLUME 93.8 fl (81.0-99.0); MEAN CORPUSCULAR HGB 29.9 pg (27.0-31.0); MEAN CORPUSCULAR HGB CONC 31.9 g/dl (33.0-37.0); MEAN PLATELET VOLUME 9.8 fl (9.6-12.3); MONO # 0.4 10*3/uL (0.1-1.0); MONO % 8.4 % (3.0-9.0); NEUT # 2.8 10*3/uL (2.3-7.9); NEUT % 59.2 % (47.0-73.0); PLATELET COUNT AUTOMATED 246 10*3/uL (130-400); RED BLOOD COUNT 4.38 10*6/uL (4.10-5.10); RED CELL DISTRI WIDTH 14.1 % (0-14.5); WHITE BLOOD COUNT 4.8 10*3/uL (4.8-10.8)
[2020-03-23 16:36] LABS: INTERNATIONAL NORM RATIO 3.4 (2.0-3.5)
[2020-03-23 16:41] LABS: ALBUMIN 3.8 gm/dl (3.1-4.5); ALKALINE PHOSPHATASE 85 U/L (45-117); CHOLESTEROL 245 mg/dL (<200); HDL CHOLESTEROL 41 mg/dl (40-60); LDL CHOLESTEROL 162 mg/dL (9-159); SGOT/AST 19 IU/L (3-35); SGPT/ALT 23 U/L (12-78); THYROXINE (T4) TOTAL 7.1 ug/dl (4.8-13.9); TRIGLYCERIDES 210 mg/dl (<150); VLDL CHOLESTEROL 42 mg/dL (6-40)
[2020-03-23 16:49] LABS: BILIRUBIN, DIRECT < 0.1 mg/dL (0.0-0.2)
== END | disposition home or self-care (01) ==
LOC: LAB 15:49
PROVIDERS: Internal Medicine Clinical Cardiac Electrophysiology; ATTEND Family Medicine
DX: E11.9 Type 2 diabetes mellitus without complications (principal); E78.2 Mixed hyperlipidemia; Z79.01 Long term (current) use of anticoagulants; Z95.2 Presence of prosthetic heart valve

== ENCOUNTER → 2020-04-02 | Outpatient (CLI) | payer OTHER, MEDICAID ==
[2020-04-02 12:09] LABS: INTERNATIONAL NORM RATIO 4.6 (2.0-3.5)
== END | disposition home or self-care (01) ==
LOC: LAB 10:53
PROVIDERS: ATTEND Internal Medicine Clinical Cardiac Electrophysiology
DX: Z79.01 Long term (current) use of anticoagulants (principal)

== ENCOUNTER 2020-04-06 10:06 | Emergency (ER) | payer OTHER, MEDICAID ==
[~2020-04-06] VITALS: Ht 157.4 cm; Wt 113.4 kg
[2020-04-06 10:20] VITALS: BP 131/70
== END 2020-04-06 12:58 | disposition home or self-care (01) ==
LOC: ED 10:06
DX: S40.011A Contusion of right shoulder, initial encounter (principal); S60.222A Contusion of left hand, initial encounter; Z88.1 Allergy status to other antibiotic agents; Z88.8 Allergy status to other drugs, medicaments and biological substances; Z79.899 Other long term (current) drug therapy; W18.09XA Striking against other object with subsequent fall, initial encounter; Y93.89 Activity, other specified; Y92.89 Other specified places as the place of occurrence of the external cause; Y99.8 Other external cause status

== ENCOUNTER → 2020-04-06 | Outpatient (CLI) | payer OTHER, MEDICAID ==
[2020-04-06 10:50] LABS: INTERNATIONAL NORM RATIO 6.2 (2.0-3.5)
== END | disposition home or self-care (01) ==
LOC: LAB 09:55
PROVIDERS: ATTEND Internal Medicine Clinical Cardiac Electrophysiology
DX: Z79.01 Long term (current) use of anticoagulants (principal)

== ENCOUNTER → 2020-04-14 | Outpatient (CLI) | payer OTHER, MEDICAID ==
[2020-04-14 12:36] LABS: INTERNATIONAL NORM RATIO 2.5 (2.0-3.5)
== END | disposition home or self-care (01) ==
LOC: LAB 12:12
PROVIDERS: ATTEND Internal Medicine Clinical Cardiac Electrophysiology
DX: Z79.01 Long term (current) use of anticoagulants (principal); Z95.2 Presence of prosthetic heart valve

== ENCOUNTER → 2020-04-19 | Outpatient (CLI) | payer OTHER, MEDICAID ==
[2020-04-19 17:59] LABS: INTERNATIONAL NORM RATIO 7.9 (2.0-3.5)
== END | disposition home or self-care (01) ==
LOC: LAB 15:27
PROVIDERS: ATTEND Internal Medicine Clinical Cardiac Electrophysiology
DX: Z79.01 Long term (current) use of anticoagulants (principal); Z95.2 Presence of prosthetic heart valve

== ENCOUNTER → 2020-04-22 | Outpatient (CLI) | payer OTHER, MEDICAID ==
[2020-04-22 15:50] LABS: INTERNATIONAL NORM RATIO 2.3 (2.0-3.5)
== END | disposition home or self-care (01) ==
LOC: LAB 14:39
PROVIDERS: ATTEND Internal Medicine Clinical Cardiac Electrophysiology
DX: Z95.2 Presence of prosthetic heart valve (principal); Z79.01 Long term (current) use of anticoagulants

== ENCOUNTER → 2020-05-03 | Outpatient (CLI) | payer OTHER, MEDICAID ==
[2020-05-03 13:41] LABS: INTERNATIONAL NORM RATIO 2.2 (2.0-3.5)
== END | disposition home or self-care (01) ==
LOC: LAB 12:06
PROVIDERS: ATTEND Internal Medicine Clinical Cardiac Electrophysiology
DX: Z51.81 Encounter for therapeutic drug level monitoring (principal); Z79.01 Long term (current) use of anticoagulants; Z95.2 Presence of prosthetic heart valve

== ENCOUNTER → 2020-05-12 | Outpatient (CLI) | payer OTHER, MEDICAID ==
[2020-05-12 10:42] LABS: INTERNATIONAL NORM RATIO 2.3 (2.0-3.5)
== END | disposition home or self-care (01) ==
LOC: LAB 10:01
PROVIDERS: ATTEND Internal Medicine Clinical Cardiac Electrophysiology
DX: Z95.2 Presence of prosthetic heart valve (principal); Z79.01 Long term (current) use of anticoagulants

== ENCOUNTER → 2020-05-18 | Outpatient (CLI) | payer OTHER, MEDICAID ==
[2020-05-18 16:50] LABS: INTERNATIONAL NORM RATIO 3.2 (2.0-3.5)
== END | disposition home or self-care (01) ==
LOC: LAB 15:52
PROVIDERS: ATTEND Internal Medicine Clinical Cardiac Electrophysiology
DX: Z79.01 Long term (current) use of anticoagulants (principal); Z95.2 Presence of prosthetic heart valve

== ENCOUNTER 2020-05-25 05:19 | Emergency (ER) | payer OTHER, MEDICAID ==
[~2020-05-25] VITALS: Ht 157.4 cm; Wt 113.4 kg
[2020-05-25 05:23] VITALS: BP 127/79
[2020-05-25 06:18] LABS: BASO # 0.1 10*3/uL (0.0-0.1); EOS # 0.3 10*3/uL (0.0-0.4); EOS % 5.2 % (1.0-4.0); HEMATOCRIT 37.1 % (37.0-47.0); LYMPH # 1.9 10*3/uL (1.3-4.4); LYMPH % 32.4 % (27.0-41.0); MEAN CELL VOLUME 94.2 fl (81.0-99.0); MEAN CORPUSCULAR HGB 29.7 pg (27.0-31.0); MEAN CORPUSCULAR HGB CONC 31.5 g/dl (33.0-37.0); MEAN PLATELET VOLUME 9.5 fl (9.6-12.3); MONO # 0.7 10*3/uL (0.1-1.0); MONO % 11.2 % (3.0-9.0); NEUT # 2.9 10*3/uL (2.3-7.9); NEUT % 49.9 % (47.0-73.0); PLATELET COUNT AUTOMATED 241 10*3/uL (130-400); RED BLOOD COUNT 3.94 10*6/uL (4.10-5.10); RED CELL DISTRI WIDTH 14.7 % (0-14.5); WHITE BLOOD COUNT 5.8 10*3/uL (4.8-10.8)
[2020-05-25 06:28] LABS: CREATININE 1.2 mg/dL (0.55-1.02); POTASSIUM 4.2 mmol/L (3.5-5.1)
== END 2020-05-25 07:00 | disposition home or self-care (01) ==
LOC: ED 05:19
PROVIDERS: Emergency Medicine
DX: M10.072 Idiopathic gout, left ankle and foot (principal); K21.9 Gastro-esophageal reflux disease without esophagitis; I10 Essential (primary) hypertension; F41.9 Anxiety disorder, unspecified; E66.9 Obesity, unspecified; F32.9 Major depressive disorder, single episode, unspecified; I25.2 Old myocardial infarction; G43.909 Migraine, unspecified, not intractable, without status migrainosus; Z88.8 Allergy status to other drugs, medicaments and biological substances; Z88.1 Allergy status to other antibiotic agents; Z91.041 Radiographic dye allergy status; Z79.899 Other long term (current) drug therapy; Z79.01 Long term (current) use of anticoagulants; Z90.710 Acquired absence of both cervix and uterus; Z90.49 Acquired absence of other specified parts of digestive tract; Z95.0 Presence of cardiac pacemaker

== ENCOUNTER → 2020-07-22 | Outpatient (CLI) | payer OTHER, MEDICAID ==
[2020-07-22 12:40] LABS: INTERNATIONAL NORM RATIO 7.4 (2.0-3.5)
== END | disposition home or self-care (01) ==
LOC: LAB 11:14
PROVIDERS: ATTEND Internal Medicine Clinical Cardiac Electrophysiology
DX: Z95.2 Presence of prosthetic heart valve (principal); Z79.01 Long term (current) use of anticoagulants

== ENCOUNTER 2020-07-29 14:53 | Emergency (ER) | payer OTHER, MEDICAID ==
[2020-07-29 14:59] VITALS: BP 144/74
[2020-07-29 16:02] LABS: BASO # 0.1 10*3/uL (0.0-0.1); BASO % 0.9 % (0.0-1.0); EOS # 0.4 10*3/uL (0.0-0.4); EOS % 6.4 % (1.0-4.0); HEMATOCRIT 38.6 % (37.0-47.0); LYMPH # 1.1 10*3/uL (1.3-4.4); LYMPH % 19.6 % (27.0-41.0); MEAN CELL VOLUME 96.3 fl (81.0-99.0); MEAN CORPUSCULAR HGB 29.7 pg (27.0-31.0); MEAN CORPUSCULAR HGB CONC 30.8 g/dl (33.0-37.0); MEAN PLATELET VOLUME 9.2 fl (9.6-12.3); MONO # 0.6 10*3/uL (0.1-1.0); MONO % 9.5 % (3.0-9.0); NEUT # 3.7 10*3/uL (2.3-7.9); NEUT % 63.4 % (47.0-73.0); PLATELET COUNT AUTOMATED 233 10*3/uL (130-400); RED BLOOD COUNT 4.01 10*6/uL (4.10-5.10); RED CELL DISTRI WIDTH 14.1 % (0-14.5); WHITE BLOOD COUNT 5.8 10*3/uL (4.8-10.8)
[2020-07-29 16:13] LABS: ACT PARTIAL THROMBO TIME 34.3 SECONDS (20.0-32.1); INTERNATIONAL NORM RATIO 1.5 (2.0-3.5)
[2020-07-29 16:14] LABS: CREATININE 1.42 mg/dL (0.55-1.02); POTASSIUM 4.4 mmol/L (3.5-5.1)
== END 2020-07-29 17:10 | disposition home or self-care (01) ==
LOC: ED 14:53
PROVIDERS: Emergency Medicine
DX: S16.1XXA Strain of muscle, fascia and tendon at neck level, initial encounter (principal); S66.911A Strain of unspecified muscle, fascia and tendon at wrist and hand level, right hand, initial encounter; S20.219A Contusion of unspecified front wall of thorax, initial encounter; V43.52XA Car driver injured in collision with other type car in traffic accident, initial encounter; Y93.89 Activity, other specified; Y92.89 Other specified places as the place of occurrence of the external cause; Y99.8 Other external cause status

== ENCOUNTER 2020-11-02 20:01 | Emergency (ER) | payer OTHER ==
[~2020-11-02] VITALS: Ht 165.1 cm; Wt 136.1 kg
[2020-11-02 21:04] VITALS: BP 153/61
[2020-11-02] MEDS ORDERED: NAPROXEN250 MG PO (21:42)
== END 2020-11-02 22:00 | disposition home or self-care (01) ==
LOC: ED 20:01
DX: R07.89 Other chest pain (principal); M79.632 Pain in left forearm; Z88.8 Allergy status to other drugs, medicaments and biological substances; Z91.041 Radiographic dye allergy status; Z79.899 Other long term (current) drug therapy; Z79.01 Long term (current) use of anticoagulants; Z98.890 Other specified postprocedural states; Y08.89XA Assault by other specified means, initial encounter; Y93.89 Activity, other specified; Y92.89 Other specified places as the place of occurrence of the external cause; Y99.8 Other external cause status

== ENCOUNTER → 2020-11-22 | Outpatient (CLI) | payer OTHER, MEDICAID ==
[~2020-11-22] MED LIST changes: +NAPROXEN250 MG PO
[2020-11-22 12:18] LABS: ALBUMIN 3.7 gm/dl (3.1-4.5); ALKALINE PHOSPHATASE 71 U/L (45-117); BILIRUBIN, DIRECT < 0.1 mg/dL (0.0-0.2); CHOLESTEROL 244 mg/dL (<200); HDL CHOLESTEROL 40 mg/dl (40-60); LDL CHOLESTEROL 163 mg/dL (9-159); SGOT/AST 20 IU/L (3-35); SGPT/ALT 27 U/L (12-78); TOTAL PROTEIN 7.5 gm/dL (6.4-8.2); TRIGLYCERIDES 203 mg/dl (<150); VLDL CHOLESTEROL 41 mg/dL (6-40)
== END | disposition home or self-care (01) ==
LOC: LAB 10:38
PROVIDERS: ATTEND Family Medicine
DX: E78.5 Hyperlipidemia, unspecified (principal)

== ENCOUNTER 2020-12-22 19:56 | Emergency (ER) | payer OTHER, MEDICAID ==
[~2020-12-22] VITALS: Ht 154.9 cm; Wt 108.9 kg
[2020-12-22 19:59] VITALS: BP 141/82
[2020-12-22 20:23] LABS: BASO # 0.1 10*3/uL (0.0-0.1); BASO % 0.8 % (0.0-1.0); EOS # 0.3 10*3/uL (0.0-0.4); EOS % 5.1 % (1.0-4.0); HEMATOCRIT 39.7 % (37.0-47.0); LYMPH # 1.4 10*3/uL (1.3-4.4); LYMPH % 23.9 % (27.0-41.0); MEAN CELL VOLUME 95.4 fl (81.0-99.0); MEAN CORPUSCULAR HGB 30.5 pg (27.0-31.0); MEAN PLATELET VOLUME 9.3 fl (9.6-12.3); MONO # 0.6 10*3/uL (0.1-1.0); MONO % 9.5 % (3.0-9.0); NEUT # 3.6 10*3/uL (2.3-7.9); NEUT % 60.2 % (47.0-73.0); PLATELET COUNT AUTOMATED 244 10*3/uL (130-400); RED BLOOD COUNT 4.16 10*6/uL (4.10-5.10); RED CELL DISTRI WIDTH 14.5 % (0-14.5)
[2020-12-22 20:35] LABS: BUN 23 mg/dl (7-24); CHLORIDE 106 mmol/L (98-107); CREATININE 1.05 mg/dL (0.55-1.02); POTASSIUM 3.9 mmol/L (3.5-5.1); SODIUM 138 mmol/L (136-145)
[2020-12-22 20:39] LABS: ACT PARTIAL THROMBO TIME 55.4 SECONDS (20.0-32.1)
[2020-12-22 20:46] LABS: INTERNATIONAL NORM RATIO 6.3 (2.0-3.5)
== END 2020-12-22 21:04 | disposition home or self-care (01) ==
LOC: ED 19:56
PROVIDERS: Emergency Medicine
DX: R79.1 Abnormal coagulation profile (principal); Z88.8 Allergy status to other drugs, medicaments and biological substances; Z91.013 Allergy to seafood; Z91.041 Radiographic dye allergy status; Z79.899 Other long term (current) drug therapy; Z90.711 Acquired absence of uterus with remaining cervical stump; Z98.890 Other specified postprocedural states

== ENCOUNTER 2021-01-18 20:16 | Emergency (ER) | payer OTHER, MEDICAID ==
[~2021-01-18] VITALS: Wt 111.1 kg
[2021-01-18 20:57] VITALS: BP 115/57
== END 2021-01-19 02:01 | disposition home or self-care (01) ==
LOC: ED 20:16
DX: G44.009 Cluster headache syndrome, unspecified, not intractable (principal); F41.9 Anxiety disorder, unspecified; K21.9 Gastro-esophageal reflux disease without esophagitis; M10.9 Gout, unspecified; Z88.8 Allergy status to other drugs, medicaments and biological substances; Z91.013 Allergy to seafood; Z79.899 Other long term (current) drug therapy; Z90.711 Acquired absence of uterus with remaining cervical stump; Z98.890 Other specified postprocedural states

== ENCOUNTER → 2021-01-20 | Outpatient (CLI) | payer OTHER, MEDICAID | END | disposition home or self-care (01) | LOC: LAB 13:36 | PROVIDERS: ATTEND Specialist | DX: M10.9 Gout, unspecified (principal) ==

== ENCOUNTER 2021-03-11 13:34 | Inpatient (IN) | payer OTHER, MEDICAID ==
[~2021-03-11] VITALS: Ht 163 cm; Wt 102.0 kg
[~2021-03-11 13:34] MED LIST changes: +METRONIDAZOLE500 M1 PO
[2021-03-11 13:54] VITALS: BP 98/52
[2021-03-11 14:52] LABS: HEMATOCRIT 35.1 % (37.0-47.0); MEAN CELL VOLUME 94.1 fl (81.0-99.0); MEAN CORPUSCULAR HGB 30.3 pg (27.0-31.0); MEAN CORPUSCULAR HGB CONC 32.2 g/dl (33.0-37.0); MEAN PLATELET VOLUME 8.9 fl (9.6-12.3); PLATELET COUNT AUTOMATED 408 10*3/uL (130-400); RED BLOOD COUNT 3.73 10*6/uL (4.10-5.10); RED CELL DISTRI WIDTH 15.1 % (0-14.5); WHITE BLOOD COUNT 8.5 10*3/uL (4.8-10.8)
[2021-03-11 15:09] LABS: ALBUMIN 2.9 gm/dl (3.1-4.5); ALKALINE PHOSPHATASE 93 U/L (45-117); BUN 21 mg/dl (7-24); CHLORIDE 106 mmol/L (98-107); CREATININE 1.51 mg/dL (0.55-1.02); LIPASE 121 U/L (73-393); POTASSIUM 4.4 mmol/L (3.5-5.1); SGOT/AST 34 IU/L (3-35); SGPT/ALT 46 U/L (12-78); SODIUM 135 mmol/L (136-145); TOTAL PROTEIN 7.8 gm/dL (6.4-8.2); TROPONIN I < 0.015 ng/ml (<0.045)
[2021-03-11 15:12] LABS: BASOPHILS 2 % (0-1); PLATELET SUFFICIENCY HIGH (NORMAL); TOTAL CELLS COUNTED 100 #CELLS
[2021-03-11 15:13] LABS: BURR CELLS FEW; OVALOCYTES FEW
[2021-03-11 15:49] LABS: INTERNATIONAL NORM RATIO 12.8 (2.0-3.5)
[2021-03-11 16:18] LABS: BILIRUBIN Negative (Negative); BLOOD 3+ (Negative); CLARITY Turbid (Clear); COLOR Yellow (Yellow); GLUCOSE Negative (Negative); KETONE Negative (Negative); LEUKO ESTERASE 3+ (Negative); NITRITE Positive (Negative); PH 5.5 (4.5-8.0)
[2021-03-11 16:23] LABS: BACTERIA 4+; MUCOUS TRACE; RBC 0-2 rbc/hpf (0-2); WBC TNTC wbc/hpf (0-5)
[2021-03-11 17:43] VITALS: BP 96/41
[2021-03-11 19:48] VITALS: BP 90/34; BP 92/40
[2021-03-11] MEDS ORDERED: ZETIA10 MG PO (20:28)
[2021-03-11 22:15] VITALS: BP 135/56
[2021-03-12] MEDS ORDERED: ALLOPURINOL300 MG PO (00:24)
[2021-03-12] MEDS ORDERED: VALSARTAN40 MG PO (00:24)
[2021-03-12] MEDS ORDERED: DULOXETINE HCL30 MG PO (00:26)
[2021-03-12] MEDS ORDERED: HYDROXYCHLOROQ200 M1 PO (00:28)
[2021-03-12 06:32] LABS: HEMATOCRIT 32.3 % (37.0-47.0); MEAN CELL VOLUME 96.4 fl (81.0-99.0); MEAN CORPUSCULAR HGB 29.9 pg (27.0-31.0); MEAN PLATELET VOLUME 9.1 fl (9.6-12.3); PLATELET COUNT AUTOMATED 385 10*3/uL (130-400); RED BLOOD COUNT 3.35 10*6/uL (4.10-5.10); RED CELL DISTRI WIDTH 15.1 % (0-14.5); WHITE BLOOD COUNT 7.5 10*3/uL (4.8-10.8)
[2021-03-12 06:44] LABS: INTERNATIONAL NORM RATIO 2.1 (2.0-3.5)
[2021-03-12 06:49] LABS: ALBUMIN 2.5 gm/dl (3.1-4.5); CREATININE 1.37 mg/dL (0.55-1.02); POTASSIUM 4.3 mmol/L (3.5-5.1)
[2021-03-12 06:57] LABS: FREE T4 1.02 ng/dl (0.76-1.46); THYROID STIM HORMONE (HS) 2.09 uIU/ml (0.358-4.75); TOTAL PROTEIN 6.6 gm/dL (6.4-8.2)
[2021-03-12 07:43] LABS: PLATELET SUFFICIENCY NORMAL (NORMAL); TOTAL CELLS COUNTED 100 #CELLS
[2021-03-12 07:44] LABS: BURR CELLS FEW
[2021-03-12 08:00] VITALS: BP 143/65
[2021-03-12 08:20] LABS: VITAMIN D, 25-HYDROXY 36.8 ng/mL (30-100)
[2021-03-12] MEDS ORDERED: CIPRO500 MG PO (11:16)
[2021-03-12 12:00] VITALS: BP 116/58
== END 2021-03-12 14:26 | disposition home or self-care (01) | DRG 689 ==
LOC: ED 13:34 → EDHOLD 15:33 → 4E 21:03
PROVIDERS: Emergency Medicine; Internal Medicine; ADMIT Family Medicine; ATTEND Family Medicine
DX: N30.01 Acute cystitis with hematuria (principal); N17.0 Acute kidney failure with tubular necrosis; E44.0 Moderate protein-calorie malnutrition; F33.9 Major depressive disorder, recurrent, unspecified; E87.1 Hypo-osmolality and hyponatremia; F41.9 Anxiety disorder, unspecified; I25.10 Atherosclerotic heart disease of native coronary artery without angina pectoris; I10 Essential (primary) hypertension; E66.9 Obesity, unspecified; D64.9 Anemia, unspecified; D47.3 Essential (hemorrhagic) thrombocythemia; E87.8 Other disorders of electrolyte and fluid balance, not elsewhere classified; K21.9 Gastro-esophageal reflux disease without esophagitis; R73.9 Hyperglycemia, unspecified; M10.00 Idiopathic gout, unspecified site; E78.2 Mixed hyperlipidemia; Z79.01 Long term (current) use of anticoagulants; Z88.7 Allergy status to serum and vaccine; Z88.8 Allergy status to other drugs, medicaments and biological substances; Z88.6 Allergy status to analgesic agent; Z91.013 Allergy to seafood; Z90.49 Acquired absence of other specified parts of digestive tract; Z90.710 Acquired absence of both cervix and uterus; Z95.2 Presence of prosthetic heart valve; Z82.3 Family history of stroke; Z82.49 Family history of ischemic heart disease and other diseases of the circulatory system; Z68.38 Body mass index [BMI] 38.0-38.9, adult

== ENCOUNTER → 2021-03-18 | Outpatient (CLI) | payer OTHER, MEDICAID ==
[~2021-03-18] MED LIST changes: +ALLOPURINOL300 MG PO; +CIPRO500 MG PO; +DULOXETINE HCL30 MG PO; +HYDROXYCHLOROQ200 M1 PO; +VALSARTAN40 MG PO; +ZETIA10 MG PO
[2021-03-18 15:52] LABS: INTERNATIONAL NORM RATIO 1.4 (2.0-3.5)
== END | disposition home or self-care (01) ==
LOC: LAB 15:25
PROVIDERS: ATTEND Internal Medicine Cardiovascular Disease
DX: I48.11 Longstanding persistent atrial fibrillation (principal)

== ENCOUNTER → 2021-03-22 | Outpatient (CLI) | payer OTHER, MEDICAID ==
[2021-03-22 14:50] LABS: INTERNATIONAL NORM RATIO 1.7 (2.0-3.5)
== END | disposition home or self-care (01) ==
LOC: LAB 14:17
PROVIDERS: ATTEND Internal Medicine Cardiovascular Disease
DX: I48.11 Longstanding persistent atrial fibrillation (principal)

== ENCOUNTER → 2021-03-24 | Outpatient (CLI) | payer OTHER, MEDICAID ==
[2021-03-24 14:35] LABS: INTERNATIONAL NORM RATIO 1.9 (2.0-3.5)
== END | disposition home or self-care (01) ==
LOC: LAB 14:04
PROVIDERS: ATTEND Internal Medicine Cardiovascular Disease
DX: I48.11 Longstanding persistent atrial fibrillation (principal)

== ENCOUNTER → 2021-03-25 | Outpatient (CLI) | payer OTHER, MEDICAID ==
[2021-03-25 13:25] LABS: INTERNATIONAL NORM RATIO 2.4 (2.0-3.5)
== END | disposition home or self-care (01) ==
LOC: LAB 12:49
PROVIDERS: ATTEND Internal Medicine Cardiovascular Disease
DX: I48.11 Longstanding persistent atrial fibrillation (principal); Z79.01 Long term (current) use of anticoagulants

== ENCOUNTER 2021-03-29 14:45 | Emergency (ER) | payer OTHER, MEDICAID ==
[~2021-03-29] VITALS: Ht 157.4 cm; Wt 111.1 kg
[2021-03-29 14:56] VITALS: BP 122/64
[2021-03-29 20:13] LABS: BASO % 0.6 % (0.0-1.0); EOS # 0.3 10*3/uL (0.0-0.4); EOS % 5.6 % (1.0-4.0); HEMATOCRIT 36.4 % (37.0-47.0); LYMPH # 1.6 10*3/uL (1.3-4.4); LYMPH % 31.5 % (27.0-41.0); MEAN CELL VOLUME 97.6 fl (81.0-99.0); MEAN CORPUSCULAR HGB 30.3 pg (27.0-31.0); MEAN PLATELET VOLUME 9.3 fl (9.6-12.3); MONO # 0.6 10*3/uL (0.1-1.0); MONO % 11.5 % (3.0-9.0); NEUT # 2.6 10*3/uL (2.3-7.9); NEUT % 50.4 % (47.0-73.0); PLATELET COUNT AUTOMATED 215 10*3/uL (130-400); RED BLOOD COUNT 3.73 10*6/uL (4.10-5.10); RED CELL DISTRI WIDTH 15.4 % (0-14.5); WHITE BLOOD COUNT 5.1 10*3/uL (4.8-10.8)
[2021-03-29 20:29] LABS: ALBUMIN 3.4 gm/dl (3.1-4.5); CREATININE 1.2 mg/dL (0.55-1.02); POTASSIUM 4.2 mmol/L (3.5-5.1); TOTAL PROTEIN 7.8 gm/dL (6.4-8.2)
[2021-03-29 20:42] LABS: INTERNATIONAL NORM RATIO > 9.3 (2.0-3.5)
[2021-03-29 21:02] LABS: BILIRUBIN Negative (Negative); BLOOD Negative (Negative); CLARITY Clear (Clear); COLOR Yellow (Yellow); GLUCOSE Negative (Negative); KETONE Negative (Negative); LEUKO ESTERASE Negative (Negative); NITRITE Negative (Negative); PH 5.5 (4.5-8.0); UROBILINOGEN 0.2 E.U./dl (0.0-1.0)
[2021-03-29 21:25] LABS: EPITHELIAL CELLS 0-2; WBC 0-2 wbc/hpf (0-5)
== END 2021-03-29 22:06 | disposition left against medical advice (07) ==
LOC: ED 14:45
PROVIDERS: Physician Assistant
DX: R79.1 Abnormal coagulation profile (principal); Z88.1 Allergy status to other antibiotic agents; Z88.7 Allergy status to serum and vaccine; Z91.013 Allergy to seafood; Z79.899 Other long term (current) drug therapy

== ENCOUNTER → 2021-03-29 | Outpatient (CLI) | payer OTHER, MEDICAID ==
[2021-03-29 13:06] LABS: INTERNATIONAL NORM RATIO 9.3 (2.0-3.5)
== END | disposition home or self-care (01) ==
LOC: LAB 12:10
PROVIDERS: Internal Medicine Cardiovascular Disease; ATTEND Family Medicine
DX: I48.11 Longstanding persistent atrial fibrillation (principal)

== ENCOUNTER → 2021-03-30 | Outpatient (CLI) | payer OTHER, MEDICAID ==
[2021-03-30 08:51] LABS: INTERNATIONAL NORM RATIO 2.7 (2.0-3.5)
== END | disposition home or self-care (01) ==
LOC: LAB 08:29
PROVIDERS: ATTEND Internal Medicine Cardiovascular Disease
DX: I48.11 Longstanding persistent atrial fibrillation (principal)

== ENCOUNTER → 2021-03-31 | Outpatient (CLI) | payer OTHER, MEDICAID ==
[2021-03-31 09:24] LABS: INTERNATIONAL NORM RATIO 1.5 (2.0-3.5)
== END | disposition home or self-care (01) ==
LOC: LAB 09:00
PROVIDERS: ATTEND Internal Medicine Cardiovascular Disease
DX: I48.11 Longstanding persistent atrial fibrillation (principal)

== ENCOUNTER → 2021-04-01 | Outpatient (CLI) | payer OTHER, MEDICAID ==
[2021-04-01 09:52] LABS: INTERNATIONAL NORM RATIO 1.9 (2.0-3.5)
== END | disposition home or self-care (01) ==
LOC: LAB 09:23
PROVIDERS: ATTEND Internal Medicine Cardiovascular Disease
DX: I48.11 Longstanding persistent atrial fibrillation (principal)

== ENCOUNTER → 2021-04-04 | Outpatient (CLI) | payer OTHER, MEDICAID | END | disposition home or self-care (01) | LOC: LAB 08:38 | PROVIDERS: ATTEND Internal Medicine Cardiovascular Disease | DX: I48.11 Longstanding persistent atrial fibrillation (principal) ==

== ENCOUNTER → 2021-04-05 | Outpatient (CLI) | payer OTHER, MEDICAID ==
[2021-04-05 09:46] LABS: INTERNATIONAL NORM RATIO 2.6 (2.0-3.5)
== END | disposition home or self-care (01) ==
LOC: LAB 08:50
PROVIDERS: Internal Medicine Cardiovascular Disease; ATTEND Family Medicine
DX: I48.11 Longstanding persistent atrial fibrillation (principal)

== ENCOUNTER → 2021-04-06 | Outpatient (CLI) | payer OTHER, MEDICAID ==
[2021-04-06 09:59] LABS: INTERNATIONAL NORM RATIO 2.4 (2.0-3.5)
== END | disposition home or self-care (01) ==
LOC: LAB 09:32
PROVIDERS: ATTEND Internal Medicine Cardiovascular Disease
DX: I48.11 Longstanding persistent atrial fibrillation (principal)

== ENCOUNTER → 2021-04-11 | Outpatient (CLI) | payer OTHER, MEDICAID | END | disposition home or self-care (01) | LOC: LAB 00:11 | PROVIDERS: ATTEND Internal Medicine Cardiovascular Disease | DX: I48.11 Longstanding persistent atrial fibrillation (principal) ==

== ENCOUNTER → 2021-04-18 | Outpatient (CLI) | payer OTHER, MEDICAID ==
[2021-04-18 11:41] LABS: INTERNATIONAL NORM RATIO 1.5 (2.0-3.5)
== END | disposition home or self-care (01) ==
LOC: LAB 00:33
PROVIDERS: ATTEND Internal Medicine Cardiovascular Disease
DX: I48.11 Longstanding persistent atrial fibrillation (principal)

== ENCOUNTER → 2021-04-19 | Outpatient (CLI) | payer OTHER, MEDICAID ==
[2021-04-19 08:58] LABS: INTERNATIONAL NORM RATIO 1.7 (2.0-3.5)
== END | disposition home or self-care (01) ==
LOC: LAB 08:27
PROVIDERS: ATTEND Internal Medicine Cardiovascular Disease
DX: I48.11 Longstanding persistent atrial fibrillation (principal)

== ENCOUNTER → 2021-04-20 | Outpatient (CLI) | payer OTHER, MEDICAID ==
[2021-04-20 09:54] LABS: INTERNATIONAL NORM RATIO 2.3 (2.0-3.5)
== END | disposition home or self-care (01) ==
LOC: LAB 00:20
PROVIDERS: ATTEND Internal Medicine Cardiovascular Disease
DX: I48.11 Longstanding persistent atrial fibrillation (principal)

== ENCOUNTER → 2021-04-22 | Outpatient (CLI) | payer OTHER, MEDICAID ==
[2021-04-22 11:05] LABS: INTERNATIONAL NORM RATIO 2.6 (2.0-3.5)
== END | disposition home or self-care (01) ==
LOC: LAB 10:23
PROVIDERS: ATTEND Internal Medicine Cardiovascular Disease
DX: I48.11 Longstanding persistent atrial fibrillation (principal)

== ENCOUNTER → 2021-04-25 | Outpatient (CLI) | payer OTHER, MEDICAID ==
[2021-04-25 12:58] LABS: INTERNATIONAL NORM RATIO 2.1 (2.0-3.5)
== END | disposition home or self-care (01) ==
LOC: LAB 00:17
PROVIDERS: ATTEND Internal Medicine Cardiovascular Disease
DX: I48.11 Longstanding persistent atrial fibrillation (principal)

== ENCOUNTER → 2021-04-29 | Outpatient (CLI) | payer OTHER, MEDICAID ==
[2021-04-29 11:01] LABS: INTERNATIONAL NORM RATIO 1.6 (2.0-3.5)
== END | disposition home or self-care (01) ==
LOC: LAB 10:37
PROVIDERS: ATTEND Internal Medicine Cardiovascular Disease
DX: I48.11 Longstanding persistent atrial fibrillation (principal)

== ENCOUNTER → 2021-05-02 | Outpatient (CLI) | payer OTHER, MEDICAID ==
[2021-05-02 07:43] LABS: INTERNATIONAL NORM RATIO 2.3 (2.0-3.5)
== END | disposition home or self-care (01) ==
LOC: LAB 00:26
PROVIDERS: ATTEND Internal Medicine Cardiovascular Disease
DX: I48.11 Longstanding persistent atrial fibrillation (principal)

== ENCOUNTER → 2021-05-06 | Outpatient (CLI) | payer OTHER, MEDICAID ==
[2021-05-06 11:45] LABS: INTERNATIONAL NORM RATIO 3.6 (2.0-3.5)
== END | disposition home or self-care (01) ==
LOC: LAB 10:52
PROVIDERS: ATTEND Internal Medicine Cardiovascular Disease
DX: I48.11 Longstanding persistent atrial fibrillation (principal)

== ENCOUNTER → 2021-05-11 | Outpatient (CLI) | payer OTHER, MEDICAID ==
[2021-05-11 10:52] LABS: INTERNATIONAL NORM RATIO 2.1 (2.0-3.5)
== END | disposition home or self-care (01) ==
LOC: LAB 10:08
PROVIDERS: ATTEND Internal Medicine Cardiovascular Disease
DX: I48.11 Longstanding persistent atrial fibrillation (principal)

== ENCOUNTER → 2021-05-16 | Outpatient (CLI) | payer OTHER, MEDICAID ==
[2021-05-16 12:28] LABS: INTERNATIONAL NORM RATIO 1.4 (2.0-3.5)
== END | disposition home or self-care (01) ==
LOC: LAB 00:05
PROVIDERS: ATTEND Internal Medicine Cardiovascular Disease
DX: I48.11 Longstanding persistent atrial fibrillation (principal)

== ENCOUNTER → 2021-05-17 | Outpatient (CLI) | payer OTHER, MEDICAID ==
[2021-05-17 11:33] LABS: INTERNATIONAL NORM RATIO 1.6 (2.0-3.5)
== END | disposition home or self-care (01) ==
LOC: LAB 00:12
PROVIDERS: ATTEND Internal Medicine Cardiovascular Disease
DX: I48.11 Longstanding persistent atrial fibrillation (principal)

== ENCOUNTER → 2021-05-18 | Outpatient (CLI) | payer OTHER, MEDICAID ==
[2021-05-18 12:44] LABS: INTERNATIONAL NORM RATIO 1.9 (2.0-3.5)
== END | disposition home or self-care (01) ==
LOC: LAB 12:21
PROVIDERS: ATTEND Internal Medicine Cardiovascular Disease
DX: I48.11 Longstanding persistent atrial fibrillation (principal)

== ENCOUNTER → 2021-05-19 | Outpatient (CLI) | payer OTHER, MEDICAID ==
[2021-05-19 08:38] LABS: INTERNATIONAL NORM RATIO 2.1 (2.0-3.5)
== END | disposition home or self-care (01) ==
LOC: LAB 08:00
PROVIDERS: ATTEND Internal Medicine Cardiovascular Disease
DX: I48.11 Longstanding persistent atrial fibrillation (principal)

== ENCOUNTER → 2021-05-23 | Outpatient (CLI) | payer OTHER, MEDICAID ==
[2021-05-23 13:04] LABS: INTERNATIONAL NORM RATIO 2.4 (2.0-3.5)
== END | disposition home or self-care (01) ==
LOC: LAB 12:17
PROVIDERS: ATTEND Internal Medicine Cardiovascular Disease
DX: I48.11 Longstanding persistent atrial fibrillation (principal)

== ENCOUNTER → 2021-05-30 | Outpatient (CLI) | payer OTHER, MEDICAID ==
[2021-05-30 07:09] LABS: INTERNATIONAL NORM RATIO 2.3 (2.0-3.5)
== END | disposition home or self-care (01) ==
LOC: LAB 06:45
PROVIDERS: ATTEND Internal Medicine Cardiovascular Disease
DX: I48.11 Longstanding persistent atrial fibrillation (principal)

== ENCOUNTER → 2021-06-06 | Outpatient (CLI) | payer OTHER, MEDICAID ==
[2021-06-06 12:11] LABS: INTERNATIONAL NORM RATIO 2.1 (2.0-3.5)
== END | disposition home or self-care (01) ==
LOC: LAB 11:37
PROVIDERS: ATTEND Internal Medicine Cardiovascular Disease
DX: I48.11 Longstanding persistent atrial fibrillation (principal)

== ENCOUNTER → 2021-06-13 | Outpatient (CLI) | payer OTHER, MEDICAID ==
[2021-06-13 13:31] LABS: BILIRUBIN Negative (Negative); BLOOD Negative (Negative); CLARITY Clear (Clear); COLOR Yellow (Yellow); GLUCOSE Negative (Negative); KETONE Negative (Negative); LEUKO ESTERASE Negative (Negative); NITRITE Negative (Negative); UROBILINOGEN 0.2 E.U./dl (0.0-1.0)
[2021-06-13 13:34] LABS: BASO % 0.9 % (0.0-1.0); EOS # 0.2 10*3/uL (0.0-0.4); EOS % 4.1 % (1.0-4.0); HEMATOCRIT 39.4 % (37.0-47.0); LYMPH # 1.3 10*3/uL (1.3-4.4); LYMPH % 30.3 % (27.0-41.0); MEAN CELL VOLUME 97.3 fl (81.0-99.0); MEAN CORPUSCULAR HGB 30.4 pg (27.0-31.0); MEAN CORPUSCULAR HGB CONC 31.2 g/dl (33.0-37.0); MEAN PLATELET VOLUME 9.7 fl (9.6-12.3); MONO # 0.4 10*3/uL (0.1-1.0); MONO % 9.2 % (3.0-9.0); NEUT # 2.4 10*3/uL (2.3-7.9); PLATELET COUNT AUTOMATED 248 10*3/uL (130-400); RED BLOOD COUNT 4.05 10*6/uL (4.10-5.10); RED CELL DISTRI WIDTH 14.3 % (0-14.5); WHITE BLOOD COUNT 4.4 10*3/uL (4.8-10.8)
[2021-06-13 13:39] LABS: URINE CREATININE RANDOM 49.5 mg/dL
[2021-06-13 13:44] LABS: ALBUMIN 3.5 gm/dl (3.1-4.5); CREATININE 1.13 mg/dL (0.55-1.02); INTERNATIONAL NORM RATIO 2.9 (2.0-3.5); POTASSIUM 4.1 mmol/L (3.5-5.1)
[2021-06-13 14:37] LABS: RBC 0-2 rbc/hpf (0-2); WBC 0-2 wbc/hpf (0-5)
[2021-06-13 14:42] LABS: PTH INTACT 92.8 pg/mL (18.5-88.0); VITAMIN D, 25-HYDROXY 18.2 ng/mL (30-100)
== END | disposition home or self-care (01) ==
LOC: LAB 12:45
PROVIDERS: Internal Medicine Cardiovascular Disease; ATTEND Internal Medicine Nephrology
DX: N18.31 Chronic kidney disease, stage 3a (principal); N25.81 Secondary hyperparathyroidism of renal origin

== ENCOUNTER → 2021-06-20 | Outpatient (CLI) | payer OTHER, MEDICAID ==
[2021-06-20 10:01] LABS: INTERNATIONAL NORM RATIO 3.5 (2.0-3.5)
== END | disposition home or self-care (01) ==
LOC: LAB 09:19
PROVIDERS: ATTEND Internal Medicine Cardiovascular Disease
DX: I48.11 Longstanding persistent atrial fibrillation (principal)

== ENCOUNTER → 2021-07-04 | Outpatient (CLI) | payer OTHER, MEDICAID ==
[2021-07-04 14:05] LABS: INTERNATIONAL NORM RATIO 2.4 (2.0-3.5)
== END | disposition home or self-care (01) ==
LOC: LAB 13:26
PROVIDERS: ATTEND Internal Medicine Cardiovascular Disease
DX: I48.11 Longstanding persistent atrial fibrillation (principal)

== ENCOUNTER → 2021-07-11 | Outpatient (CLI) | payer OTHER, MEDICAID ==
[2021-07-11 11:53] LABS: INTERNATIONAL NORM RATIO 2.9 (2.0-3.5)
== END | disposition home or self-care (01) ==
LOC: LAB 11:20
PROVIDERS: ATTEND Internal Medicine Cardiovascular Disease
DX: I48.11 Longstanding persistent atrial fibrillation (principal)

== ENCOUNTER → 2021-07-18 | Outpatient (CLI) | payer OTHER, MEDICAID ==
[2021-07-18 10:39] LABS: INTERNATIONAL NORM RATIO 5.6 (2.0-3.5)
== END | disposition home or self-care (01) ==
LOC: LAB 09:17
PROVIDERS: ATTEND Internal Medicine Cardiovascular Disease
DX: I48.11 Longstanding persistent atrial fibrillation (principal)

== ENCOUNTER → 2021-07-19 | Outpatient (CLI) | payer OTHER, MEDICAID | END | disposition home or self-care (01) | LOC: LAB 11:46 | PROVIDERS: ATTEND Internal Medicine Cardiovascular Disease | DX: I48.11 Longstanding persistent atrial fibrillation (principal) ==

== ENCOUNTER → 2021-07-20 | Outpatient (CLI) | payer OTHER, MEDICAID ==
[2021-07-20 12:38] LABS: INTERNATIONAL NORM RATIO 2.2 (2.0-3.5)
== END | disposition home or self-care (01) ==
LOC: LAB 11:31
PROVIDERS: ATTEND Internal Medicine Cardiovascular Disease
DX: I48.11 Longstanding persistent atrial fibrillation (principal)

== ENCOUNTER → 2021-07-21 | Outpatient (CLI) | payer OTHER, MEDICAID ==
[2021-07-21 10:41] LABS: INTERNATIONAL NORM RATIO 1.4 (2.0-3.5)
== END ==
LOC: LAB 10:10
PROVIDERS: ATTEND Internal Medicine Cardiovascular Disease
DX: I48.11 Longstanding persistent atrial fibrillation (principal)

== ENCOUNTER → 2021-07-25 | Outpatient (CLI) | payer OTHER, MEDICAID ==
[2021-07-25 12:46] LABS: INTERNATIONAL NORM RATIO 1.9 (2.0-3.5)
== END | disposition home or self-care (01) ==
LOC: LAB 12:14
PROVIDERS: ATTEND Internal Medicine Cardiovascular Disease
DX: I48.11 Longstanding persistent atrial fibrillation (principal)

== ENCOUNTER → 2021-07-27 | Outpatient (CLI) | payer OTHER, MEDICAID | END | disposition home or self-care (01) | LOC: LAB 07:23 | PROVIDERS: ATTEND Internal Medicine Cardiovascular Disease | DX: I48.11 Longstanding persistent atrial fibrillation (principal) ==

== ENCOUNTER → 2021-08-01 | Outpatient (CLI) | payer OTHER, MEDICAID ==
[2021-08-01 12:05] LABS: INTERNATIONAL NORM RATIO 2.9 (2.0-3.5)
== END | disposition home or self-care (01) ==
LOC: LAB 11:23
PROVIDERS: Internal Medicine Cardiovascular Disease; ATTEND Family Medicine
DX: I48.11 Longstanding persistent atrial fibrillation (principal)

== ENCOUNTER → 2021-08-29 | Outpatient (CLI) | payer OTHER, MEDICAID ==
[~2021-08-29] MED LIST changes: +DECADRON6 M1 PO; +EFFER-K10 MEQ PO; +LEVOFLOXACIN750 M2 PO
[2021-08-29 11:52] LABS: INTERNATIONAL NORM RATIO 1.5 (2.0-3.5)
== END | disposition home or self-care (01) ==
LOC: LAB 11:15
PROVIDERS: ATTEND Internal Medicine Cardiovascular Disease
DX: I48.11 Longstanding persistent atrial fibrillation (principal)

== ENCOUNTER → 2021-09-08 | Outpatient (CLI) | payer OTHER, MEDICAID ==
[2021-09-08 16:03] LABS: INTERNATIONAL NORM RATIO 3.2 (2.0-3.5)
== END | disposition home or self-care (01) ==
LOC: LAB 15:38
PROVIDERS: ATTEND Internal Medicine Cardiovascular Disease
DX: I48.11 Longstanding persistent atrial fibrillation (principal)

== ENCOUNTER → 2021-09-12 | Outpatient (CLI) | payer OTHER, MEDICAID | END | disposition home or self-care (01) | LOC: LAB 12:07 | PROVIDERS: ATTEND Internal Medicine Cardiovascular Disease | DX: I48.11 Longstanding persistent atrial fibrillation (principal); Z79.01 Long term (current) use of anticoagulants ==

== ENCOUNTER 2021-09-14 16:24 | Emergency (ER) | payer OTHER, MEDICAID ==
[~2021-09-14] VITALS: Wt 116.1 kg
[2021-09-14 18:44] VITALS: BP 121/52
== END 2021-09-14 19:19 | disposition home or self-care (01) ==
LOC: ED 16:24
DX: S50.02XA Contusion of left elbow, initial encounter (principal); S60.222A Contusion of left hand, initial encounter; S09.90XA Unspecified injury of head, initial encounter; Z88.7 Allergy status to serum and vaccine; Z88.1 Allergy status to other antibiotic agents; Z91.013 Allergy to seafood; Z88.8 Allergy status to other drugs, medicaments and biological substances; Z79.899 Other long term (current) drug therapy; Z90.49 Acquired absence of other specified parts of digestive tract; Z90.710 Acquired absence of both cervix and uterus; W18.39XA Other fall on same level, initial encounter; Y93.89 Activity, other specified; Y92.89 Other specified places as the place of occurrence of the external cause; Y99.8 Other external cause status

== ENCOUNTER → 2021-09-15 | Outpatient (CLI) | payer OTHER, MEDICAID ==
[2021-09-15 10:50] LABS: BASO % 0.9 % (0.0-1.0); EOS # 0.1 10*3/uL (0.0-0.4); EOS % 3.1 % (1.0-4.0); HEMATOCRIT 35.1 % (37.0-47.0); LYMPH # 1.1 10*3/uL (1.3-4.4); LYMPH % 24.5 % (27.0-41.0); MEAN CORPUSCULAR HGB 30.7 pg (27.0-31.0); MEAN CORPUSCULAR HGB CONC 31.6 g/dl (33.0-37.0); MEAN PLATELET VOLUME 9.1 fl (9.6-12.3); MONO # 0.5 10*3/uL (0.1-1.0); MONO % 11.4 % (3.0-9.0); NEUT # 2.7 10*3/uL (2.3-7.9); PLATELET COUNT AUTOMATED 306 10*3/uL (130-400); RED BLOOD COUNT 3.62 10*6/uL (4.10-5.10); RED CELL DISTRI WIDTH 15.9 % (0-14.5); WHITE BLOOD COUNT 4.5 10*3/uL (4.8-10.8)
[2021-09-15 11:01] LABS: INTERNATIONAL NORM RATIO 2.6 (2.0-3.5)
[2021-09-15 11:15] LABS: ALKALINE PHOSPHATASE 81 U/L (45-117); BUN 17 mg/dl (7-24); CHLORIDE 108 mmol/L (98-107); CREATININE 1.13 mg/dL (0.55-1.02); POTASSIUM 4.3 mmol/L (3.5-5.1); SGOT/AST 14 IU/L (3-35); SGPT/ALT 22 U/L (12-78); SODIUM 138 mmol/L (136-145); THYROXINE (T4) TOTAL 6.3 ug/dl (4.8-13.9); TOTAL PROTEIN 7.3 gm/dL (6.4-8.2)
== END | disposition home or self-care (01) ==
LOC: LAB 10:30
PROVIDERS: Family Medicine; ATTEND Internal Medicine Cardiovascular Disease
DX: I48.11 Longstanding persistent atrial fibrillation (principal); E03.9 Hypothyroidism, unspecified

== ENCOUNTER → 2021-09-19 | Outpatient (CLI) | payer OTHER, MEDICAID ==
[2021-09-19 11:21] LABS: INTERNATIONAL NORM RATIO 1.6 (2.0-3.5)
== END | disposition home or self-care (01) ==
LOC: LAB 09:45
PROVIDERS: ATTEND Internal Medicine Cardiovascular Disease
DX: I48.11 Longstanding persistent atrial fibrillation (principal); Z79.01 Long term (current) use of anticoagulants

== ENCOUNTER → 2021-09-23 | Outpatient (CLI) | payer OTHER, MEDICAID ==
[2021-09-23 14:37] LABS: INTERNATIONAL NORM RATIO 1.8 (2.0-3.5)
== END | disposition home or self-care (01) ==
LOC: LAB 13:49
PROVIDERS: ATTEND Internal Medicine Cardiovascular Disease
DX: I48.11 Longstanding persistent atrial fibrillation (principal); Z79.01 Long term (current) use of anticoagulants

== ENCOUNTER → 2021-09-27 | Outpatient (CLI) | payer OTHER, MEDICAID ==
[2021-09-27 13:40] LABS: INTERNATIONAL NORM RATIO 1.8 (2.0-3.5)
== END | disposition home or self-care (01) ==
LOC: LAB 12:52
PROVIDERS: ATTEND Family Medicine
DX: I48.11 Longstanding persistent atrial fibrillation (principal)

== ENCOUNTER → 2021-09-30 | Outpatient (CLI) | payer OTHER, MEDICAID ==
[2021-09-30 09:27] LABS: INTERNATIONAL NORM RATIO 2.8 (2.0-3.5)
== END | disposition home or self-care (01) ==
LOC: LAB 09:04
PROVIDERS: ATTEND Internal Medicine Cardiovascular Disease
DX: I48.11 Longstanding persistent atrial fibrillation (principal)

== ENCOUNTER → 2021-10-03 | Outpatient (CLI) | payer OTHER, MEDICAID ==
[2021-10-03 13:59] LABS: INTERNATIONAL NORM RATIO 2.1 (2.0-3.5)
== END | disposition home or self-care (01) ==
LOC: LAB 13:35
PROVIDERS: ATTEND Internal Medicine Cardiovascular Disease
DX: I48.11 Longstanding persistent atrial fibrillation (principal)

== ENCOUNTER → 2021-10-06 | Outpatient (CLI) | payer OTHER, MEDICAID ==
[2021-10-06 12:24] LABS: INTERNATIONAL NORM RATIO 1.7 (2.0-3.5)
== END | disposition home or self-care (01) ==
LOC: LAB 11:56
PROVIDERS: ATTEND Internal Medicine Cardiovascular Disease
DX: I48.11 Longstanding persistent atrial fibrillation (principal)

== ENCOUNTER → 2021-10-07 | Outpatient (CLI) | payer OTHER, MEDICAID | END | disposition home or self-care (01) | LOC: LAB 13:36 | PROVIDERS: ATTEND Internal Medicine Cardiovascular Disease | DX: I48.11 Longstanding persistent atrial fibrillation (principal) ==

== ENCOUNTER → 2021-10-10 | Outpatient (CLI) | payer OTHER, MEDICAID ==
[2021-10-10 12:01] LABS: INTERNATIONAL NORM RATIO 2.4 (2.0-3.5)
== END | disposition home or self-care (01) ==
LOC: LAB 11:11
PROVIDERS: ATTEND Internal Medicine Cardiovascular Disease
DX: I48.11 Longstanding persistent atrial fibrillation (principal)

== ENCOUNTER → 2021-10-12 | Outpatient (CLI) | payer OTHER, MEDICAID ==
[2021-10-12 11:07] LABS: INTERNATIONAL NORM RATIO 2.8 (2.0-3.5)
== END | disposition home or self-care (01) ==
LOC: LAB 10:27
PROVIDERS: ATTEND Internal Medicine Cardiovascular Disease
DX: I48.11 Longstanding persistent atrial fibrillation (principal)

== ENCOUNTER → 2021-10-14 | Outpatient (CLI) | payer OTHER, MEDICAID ==
[2021-10-14 12:41] LABS: INTERNATIONAL NORM RATIO 3.5 (2.0-3.5)
== END | disposition home or self-care (01) ==
LOC: LAB 12:10
PROVIDERS: ATTEND Internal Medicine Cardiovascular Disease
DX: I48.11 Longstanding persistent atrial fibrillation (principal)

== ENCOUNTER → 2021-10-17 | Outpatient (CLI) | payer OTHER, MEDICAID ==
[2021-10-17 12:21] LABS: INTERNATIONAL NORM RATIO 1.9 (2.0-3.5)
== END | disposition home or self-care (01) ==
LOC: LAB 11:24
PROVIDERS: ATTEND Internal Medicine Cardiovascular Disease
DX: I48.11 Longstanding persistent atrial fibrillation (principal)

== ENCOUNTER → 2021-10-19 | Outpatient (CLI) | payer OTHER, MEDICAID ==
[2021-10-19 13:27] LABS: INTERNATIONAL NORM RATIO 2.1 (2.0-3.5)
== END | disposition home or self-care (01) ==
LOC: LAB 12:48
PROVIDERS: ATTEND Internal Medicine Cardiovascular Disease
DX: I48.11 Longstanding persistent atrial fibrillation (principal)

== ENCOUNTER → 2021-10-21 | Outpatient (CLI) | payer OTHER, MEDICAID ==
[2021-10-21 12:23] LABS: INTERNATIONAL NORM RATIO 2.6 (2.0-3.5)
== END | disposition home or self-care (01) ==
LOC: LAB 11:53
PROVIDERS: ATTEND Internal Medicine Cardiovascular Disease
DX: I48.11 Longstanding persistent atrial fibrillation (principal)

== ENCOUNTER → 2021-10-25 | Outpatient (CLI) | payer OTHER, MEDICAID ==
[2021-10-25 13:31] LABS: INTERNATIONAL NORM RATIO 2.4 (2.0-3.5)
== END | disposition home or self-care (01) ==
LOC: LAB 13:03
PROVIDERS: ATTEND Internal Medicine Cardiovascular Disease
DX: I48.11 Longstanding persistent atrial fibrillation (principal)

== ENCOUNTER → 2021-10-28 | Outpatient (CLI) | payer OTHER, MEDICAID ==
[2021-10-28 11:56] LABS: BASO # 0.1 10*3/uL (0.0-0.1); BASO % 1.2 % (0.0-1.0); EOS # 0.2 10*3/uL (0.0-0.4); EOS % 4.1 % (1.0-4.0); HEMATOCRIT 37.2 % (37.0-47.0); LYMPH # 1.1 10*3/uL (1.3-4.4); LYMPH % 26.9 % (27.0-41.0); MEAN CELL VOLUME 96.4 fl (81.0-99.0); MEAN CORPUSCULAR HGB 31.3 pg (27.0-31.0); MEAN CORPUSCULAR HGB CONC 32.5 g/dl (33.0-37.0); MEAN PLATELET VOLUME 9.7 fl (9.6-12.3); MONO # 0.4 10*3/uL (0.1-1.0); MONO % 10.3 % (3.0-9.0); NEUT # 2.4 10*3/uL (2.3-7.9); PLATELET COUNT AUTOMATED 217 10*3/uL (130-400); RED BLOOD COUNT 3.86 10*6/uL (4.10-5.10); RED CELL DISTRI WIDTH 14.8 % (0-14.5); WHITE BLOOD COUNT 4.2 10*3/uL (4.8-10.8)
[2021-10-28 12:05] LABS: INTERNATIONAL NORM RATIO 2.5 (2.0-3.5)
[2021-10-28 12:17] LABS: CREATININE 1.2 mg/dL (0.55-1.02); POTASSIUM 4.5 mmol/L (3.5-5.1); THYROXINE (T4) TOTAL 7.4 ug/dl (4.8-13.9)
[2021-10-28 12:25] LABS: THYROID STIM HORMONE (HS) 4.22 uIU/ml (0.358-4.75)
== END | disposition home or self-care (01) ==
LOC: LAB 11:34
PROVIDERS: Family Medicine; ATTEND Internal Medicine Cardiovascular Disease
DX: N18.9 Chronic kidney disease, unspecified (principal); R30.0 Dysuria; E03.9 Hypothyroidism, unspecified

== ENCOUNTER → 2021-11-01 | Outpatient (CLI) | payer OTHER, MEDICAID ==
[2021-11-01 10:35] LABS: INTERNATIONAL NORM RATIO 2.6 (2.0-3.5)
== END | disposition short-term general hospital (02) ==
LOC: LAB 10:05
PROVIDERS: ATTEND Family Medicine
DX: I48.11 Longstanding persistent atrial fibrillation (principal)

== ENCOUNTER → 2021-11-14 | Outpatient (CLI) | payer OTHER, MEDICAID ==
[2021-11-14 13:38] LABS: INTERNATIONAL NORM RATIO 2.7 (2.0-3.5)
== END | disposition home or self-care (01) ==
LOC: LAB 13:10
PROVIDERS: ATTEND Internal Medicine Cardiovascular Disease
DX: I48.11 Longstanding persistent atrial fibrillation (principal)

== ENCOUNTER → 2021-11-24 | Outpatient (CLI) | payer OTHER, MEDICAID ==
[2021-11-24 11:38] LABS: INTERNATIONAL NORM RATIO 3.5 (2.0-3.5)
== END | disposition home or self-care (01) ==
LOC: LAB 11:12
PROVIDERS: Internal Medicine Cardiovascular Disease; ATTEND Family Medicine
DX: I48.11 Longstanding persistent atrial fibrillation (principal)

== ENCOUNTER → 2021-12-05 | Outpatient (CLI) | payer OTHER, MEDICAID ==
[2021-12-05 14:32] LABS: INTERNATIONAL NORM RATIO 3.7 (2.0-3.5)
== END | disposition home or self-care (01) ==
LOC: LAB 14:03
PROVIDERS: ATTEND Internal Medicine Cardiovascular Disease
DX: I48.11 Longstanding persistent atrial fibrillation (principal)

== ENCOUNTER → 2021-12-13 | Outpatient (CLI) | payer OTHER, MEDICAID ==
[2021-12-13 09:22] LABS: INTERNATIONAL NORM RATIO 1.6 (2.0-3.5)
== END | disposition home or self-care (01) ==
LOC: LAB 08:51
PROVIDERS: ATTEND Internal Medicine Cardiovascular Disease
DX: I48.11 Longstanding persistent atrial fibrillation (principal); Z79.01 Long term (current) use of anticoagulants

== ENCOUNTER → 2021-12-14 | Outpatient (CLI) | payer OTHER, MEDICAID ==
[2021-12-14 14:24] LABS: INTERNATIONAL NORM RATIO 1.6 (2.0-3.5)
== END | disposition home or self-care (01) ==
LOC: LAB 13:58
PROVIDERS: ATTEND Internal Medicine Cardiovascular Disease
DX: I48.11 Longstanding persistent atrial fibrillation (principal)

== ENCOUNTER → 2021-12-15 | Outpatient (CLI) | payer OTHER, MEDICAID ==
[2021-12-15 07:51] LABS: INTERNATIONAL NORM RATIO 1.8 (2.0-3.5)
== END | disposition home or self-care (01) ==
LOC: LAB 07:25
PROVIDERS: ATTEND Internal Medicine Cardiovascular Disease
DX: I48.11 Longstanding persistent atrial fibrillation (principal)

== ENCOUNTER → 2021-12-16 | Outpatient (CLI) | payer OTHER, MEDICAID ==
[2021-12-16 12:13] LABS: INTERNATIONAL NORM RATIO 2.3 (2.0-3.5)
== END | disposition home or self-care (01) ==
LOC: LAB 11:39
PROVIDERS: ATTEND Internal Medicine Cardiovascular Disease
DX: I48.11 Longstanding persistent atrial fibrillation (principal)

== ENCOUNTER → 2021-12-20 | Outpatient (CLI) | payer OTHER, MEDICAID ==
[2021-12-20 14:42] LABS: INTERNATIONAL NORM RATIO 1.9 (2.0-3.5)
== END | disposition home or self-care (01) ==
LOC: LAB 13:45
PROVIDERS: ATTEND Internal Medicine Cardiovascular Disease
DX: I48.11 Longstanding persistent atrial fibrillation (principal)

== ENCOUNTER → 2021-12-23 | Outpatient (CLI) | payer OTHER, MEDICAID ==
[2021-12-23 12:09] LABS: BASO # 0.1 10*3/uL (0.0-0.1); BASO % 0.9 % (0.0-1.0); EOS # 0.3 10*3/uL (0.0-0.4); EOS % 4.5 % (1.0-4.0); HEMATOCRIT 37.8 % (37.0-47.0); LYMPH # 1.2 10*3/uL (1.3-4.4); LYMPH % 19.9 % (27.0-41.0); MEAN CELL VOLUME 95.7 fl (81.0-99.0); MEAN CORPUSCULAR HGB 31.1 pg (27.0-31.0); MEAN PLATELET VOLUME 9.6 fl (9.6-12.3); MONO # 0.7 10*3/uL (0.1-1.0); MONO % 11.6 % (3.0-9.0); NEUT # 3.6 10*3/uL (2.3-7.9); NEUT % 62.9 % (47.0-73.0); PLATELET COUNT AUTOMATED 213 10*3/uL (130-400); RED BLOOD COUNT 3.95 10*6/uL (4.10-5.10); RED CELL DISTRI WIDTH 13.8 % (0-14.5); WHITE BLOOD COUNT 5.8 10*3/uL (4.8-10.8)
[2021-12-23 12:11] LABS: MEAN CORPUSCULAR HGB CONC 32.5 g/dl (33.0-37.0)
[2021-12-23 12:20] LABS: INTERNATIONAL NORM RATIO 1.7 (2.0-3.5)
[2021-12-23 12:27] LABS: CREATININE 1.12 mg/dL (0.55-1.02); POTASSIUM 4.4 mmol/L (3.5-5.1); THYROXINE (T4) TOTAL 8.2 ug/dl (4.8-13.9)
[2021-12-23 12:33] LABS: THYROID STIM HORMONE (HS) 4.1 uIU/ml (0.358-4.75)
== END | disposition home or self-care (01) ==
LOC: LAB 11:41
PROVIDERS: Family Medicine; ATTEND Internal Medicine Cardiovascular Disease
DX: I48.11 Longstanding persistent atrial fibrillation (principal); E03.9 Hypothyroidism, unspecified; Z79.899 Other long term (current) drug therapy

== ENCOUNTER → 2021-12-28 | Outpatient (CLI) | payer OTHER, MEDICAID ==
[2021-12-28 13:19] LABS: INTERNATIONAL NORM RATIO 4.1 (2.0-3.5)
== END | disposition home or self-care (01) ==
LOC: LAB 12:37
PROVIDERS: ATTEND Internal Medicine Cardiovascular Disease
DX: I48.11 Longstanding persistent atrial fibrillation (principal)

== ENCOUNTER → 2022-01-19 | Outpatient (CLI) | payer OTHER, MEDICAID ==
[2022-01-19 13:57] LABS: CREATININE 1.14 mg/dL (0.55-1.02); POTASSIUM 4.2 mmol/L (3.5-5.1); THYROXINE (T4) TOTAL 8.2 ug/dl (4.8-13.9)
[2022-01-19 14:03] LABS: THYROID STIM HORMONE (HS) 4.63 uIU/ml (0.358-4.75)
== END | disposition home or self-care (01) ==
LOC: LAB 13:20
PROVIDERS: ATTEND Family Medicine
DX: E03.9 Hypothyroidism, unspecified (principal)

== ENCOUNTER 2022-03-10 13:56 | Emergency (ER) | payer OTHER, MEDICAID ==
[~2022-03-10] VITALS: Ht 157.4 cm; Wt 113.4 kg
[2022-03-10 15:46] LABS: BASO # 0.1 10*3/uL (0.0-0.1); BASO % 0.7 % (0.0-1.0); EOS # 0.1 10*3/uL (0.0-0.4); EOS % 1.6 % (1.0-4.0); HEMATOCRIT 35.6 % (37.0-47.0); LYMPH # 1.1 10*3/uL (1.3-4.4); LYMPH % 14.4 % (27.0-41.0); MEAN CELL VOLUME 94.7 fl (81.0-99.0); MEAN CORPUSCULAR HGB 31.1 pg (27.0-31.0); MEAN CORPUSCULAR HGB CONC 32.9 g/dl (33.0-37.0); MEAN PLATELET VOLUME 10.2 fl (9.6-12.3); MONO # 0.8 10*3/uL (0.1-1.0); MONO % 10.9 % (3.0-9.0); NEUT # 5.3 10*3/uL (2.3-7.9); NEUT % 71.9 % (47.0-73.0); PLATELET COUNT AUTOMATED 203 10*3/uL (130-400); RED BLOOD COUNT 3.76 10*6/uL (4.10-5.10); WHITE BLOOD COUNT 7.4 10*3/uL (4.8-10.8)
[2022-03-10 15:56] LABS: ACT PARTIAL THROMBO TIME 34.7 SECONDS (20.0-32.1); INTERNATIONAL NORM RATIO 2.5 (2.0-3.5)
[2022-03-10 15:58] LABS: CREATININE 1.15 mg/dL (0.55-1.02); POTASSIUM 4.4 mmol/L (3.5-5.1)
[2022-03-10] MEDS ORDERED: LASIX40 MG PO (18:03)
== END 2022-03-10 18:48 | disposition home or self-care (01) ==
LOC: ED 13:56
PROVIDERS: Emergency Medicine
DX: I42.9 Cardiomyopathy, unspecified (principal); Z20.822 Contact with and (suspected) exposure to COVID-19; F41.9 Anxiety disorder, unspecified; K21.9 Gastro-esophageal reflux disease without esophagitis; E78.5 Hyperlipidemia, unspecified; I10 Essential (primary) hypertension; E66.9 Obesity, unspecified; E46 Unspecified protein-calorie malnutrition; Z88.7 Allergy status to serum and vaccine; Z88.1 Allergy status to other antibiotic agents; Z88.8 Allergy status to other drugs, medicaments and biological substances; Z91.041 Radiographic dye allergy status; Z91.013 Allergy to seafood; Z79.01 Long term (current) use of anticoagulants; Z79.899 Other long term (current) drug therapy; Z68.30 Body mass index [BMI] 30.0-30.9, adult; Z98.890 Other specified postprocedural states; Z90.710 Acquired absence of both cervix and uterus; Z90.49 Acquired absence of other specified parts of digestive tract; Z95.5 Presence of coronary angioplasty implant and graft

== ENCOUNTER → 2022-07-07 | Outpatient (CLI) | payer OTHER, MEDICAID ==
[~2022-07-07] MED LIST changes: +LASIX40 MG PO
[2022-07-07 15:21] LABS: BASO # 0.1 10*3/uL (0.0-0.1); BASO % 1.1 % (0.0-1.0); EOS # 0.4 10*3/uL (0.0-0.4); HEMATOCRIT 41.2 % (37.0-47.0); LYMPH # 1.2 10*3/uL (1.3-4.4); LYMPH % 21.5 % (27.0-41.0); MEAN CELL VOLUME 94.7 fl (81.0-99.0); MEAN CORPUSCULAR HGB 30.8 pg (27.0-31.0); MEAN CORPUSCULAR HGB CONC 32.5 g/dl (33.0-37.0); MEAN PLATELET VOLUME 9.7 fl (9.6-12.3); MONO # 0.5 10*3/uL (0.1-1.0); MONO % 8.4 % (3.0-9.0); NEUT # 3.4 10*3/uL (2.3-7.9); NEUT % 61.5 % (47.0-73.0); PLATELET COUNT AUTOMATED 215 10*3/uL (130-400); RED BLOOD COUNT 4.35 10*6/uL (4.10-5.10); WHITE BLOOD COUNT 5.6 10*3/uL (4.8-10.8)
[2022-07-07 15:36] LABS: BILIRUBIN Negative (Negative); BLOOD Negative (Negative); CLARITY Clear (Clear); COLOR Yellow (Yellow); GLUCOSE Negative (Negative); KETONE Negative (Negative); LEUKO ESTERASE Negative (Negative); NITRITE Negative (Negative)
[2022-07-07 15:45] LABS: URINE CREATININE RANDOM 73.3 mg/dL
[2022-07-07 15:47] LABS: CREATININE 1.11 mg/dL (0.55-1.02); POTASSIUM 4.6 mmol/L (3.4-5.1)
[2022-07-07 15:53] LABS: VITAMIN D, 25-HYDROXY 23.5 ng/mL (30-100)
[2022-07-07 16:31] LABS: BACTERIA 1+; EPITHELIAL CELLS 21-30; WBC 0-2 wbc/hpf (0-5)
== END | disposition home or self-care (01) ==
LOC: LAB 14:37
PROVIDERS: ATTEND Internal Medicine Nephrology
DX: N18.31 Chronic kidney disease, stage 3a (principal); N25.81 Secondary hyperparathyroidism of renal origin

== ENCOUNTER → 2022-07-21 | Outpatient (CLI) | payer OTHER, MEDICAID ==
[2022-07-21 11:52] LABS: THYROID STIM HORMONE (HS) 4.429 uIU/ml (0.550-4.780)
== END | disposition home or self-care (01) ==
LOC: LAB 10:31
PROVIDERS: ATTEND Family Medicine
DX: E03.9 Hypothyroidism, unspecified (principal)

== ENCOUNTER 2022-07-29 11:01 | Emergency (ER) | payer OTHER, MEDICAID ==
[~2022-07-29] VITALS: Ht 157.4 cm; Wt 125.2 kg
[2022-07-29 11:12] VITALS: BP 151/74
[2022-07-29] MEDS ORDERED: METHOCARBAMOL500 M1 PO (14:33)
== END 2022-07-29 14:46 | disposition home or self-care (01) ==
LOC: ED 11:01
DX: S00.93XA Contusion of unspecified part of head, initial encounter (principal); Z88.7 Allergy status to serum and vaccine; Z88.5 Allergy status to narcotic agent; Z88.1 Allergy status to other antibiotic agents; Z90.710 Acquired absence of both cervix and uterus; Z91.013 Allergy to seafood; Z90.49 Acquired absence of other specified parts of digestive tract; Z91.041 Radiographic dye allergy status; Z98.890 Other specified postprocedural states; V09.9XXA Pedestrian injured in unspecified transport accident, initial encounter; Y93.89 Activity, other specified; Y92.89 Other specified places as the place of occurrence of the external cause; Y99.8 Other external cause status

== ENCOUNTER → 2022-08-24 | Outpatient (CLI) | payer OTHER, MEDICAID ==
[~2022-08-24] MED LIST changes: +METHOCARBAMOL500 M1 PO
[2022-08-24 14:20] LABS: INTERNATIONAL NORM RATIO 1.4 (2.0-3.5)
== END | disposition home or self-care (01) ==
LOC: LAB 13:44
PROVIDERS: ATTEND Internal Medicine Cardiovascular Disease
DX: I48.91 Unspecified atrial fibrillation (principal)

== ENCOUNTER → 2022-08-28 | Outpatient (CLI) | payer OTHER, MEDICAID ==
[2022-08-28 12:55] LABS: INTERNATIONAL NORM RATIO 2.5 (2.0-3.5)
== END | disposition home or self-care (01) ==
LOC: LAB 12:11
PROVIDERS: ATTEND Internal Medicine Cardiovascular Disease
DX: I48.91 Unspecified atrial fibrillation (principal)

== ENCOUNTER → 2022-09-04 | Outpatient (CLI) | payer OTHER, MEDICAID ==
[2022-09-04 10:05] LABS: BASO # 0.1 10*3/uL (0.0-0.1); EOS # 0.5 10*3/uL (0.0-0.4); EOS % 6.4 % (1.0-4.0); LYMPH # 1.6 10*3/uL (1.3-4.4); LYMPH % 22.1 % (27.0-41.0); MEAN CELL VOLUME 95.6 fl (81.0-99.0); MEAN CORPUSCULAR HGB 30.7 pg (27.0-31.0); MEAN CORPUSCULAR HGB CONC 32.1 g/dl (33.0-37.0); MEAN PLATELET VOLUME 9.5 fl (9.6-12.3); MONO # 0.6 10*3/uL (0.1-1.0); MONO % 7.8 % (3.0-9.0); NEUT # 4.4 10*3/uL (2.3-7.9); NEUT % 62.3 % (47.0-73.0); PLATELET COUNT AUTOMATED 231 10*3/uL (130-400); RED CELL DISTRI WIDTH 14.5 % (0-14.5); WHITE BLOOD COUNT 7.1 10*3/uL (4.8-10.8)
[2022-09-04 10:19] LABS: POTASSIUM 4.3 mmol/L (3.4-5.1); TOTAL PROTEIN 7.5 gm/dL (6.0-8.0)
== END | disposition home or self-care (01) ==
LOC: LAB 09:44
PROVIDERS: ATTEND Family Medicine
DX: N18.9 Chronic kidney disease, unspecified (principal); E55.9 Vitamin D deficiency, unspecified

== ENCOUNTER 2022-11-06 11:43 | Emergency (ER) | payer OTHER, MEDICAID ==
[~2022-11-06] VITALS: Ht 154.9 cm
[2022-11-06 12:13] VITALS: BP 139/69
[2022-11-06] MEDS ORDERED: TRAMADOL HCL50 MG PO (14:53)
== END 2022-11-06 14:59 | disposition home or self-care (01) ==
LOC: ED 11:43
DX: S22.31XA Fracture of one rib, right side, initial encounter for closed fracture (principal); Z88.7 Allergy status to serum and vaccine; Z88.1 Allergy status to other antibiotic agents; Z91.013 Allergy to seafood; Z88.8 Allergy status to other drugs, medicaments and biological substances; Z79.899 Other long term (current) drug therapy; Z90.49 Acquired absence of other specified parts of digestive tract; Z90.710 Acquired absence of both cervix and uterus; W18.39XA Other fall on same level, initial encounter; Y93.89 Activity, other specified; Y92.89 Other specified places as the place of occurrence of the external cause; Y99.8 Other external cause status

== ENCOUNTER → 2022-11-16 | Outpatient (CLI) | payer OTHER, MEDICAID ==
[~2022-11-16] MED LIST changes: +TRAMADOL HCL50 MG PO
[2022-11-16 17:36] LABS: BASO # 0.1 10*3/uL (0.0-0.1); BASO % 0.9 % (0.0-1.0); EOS # 0.2 10*3/uL (0.0-0.4); HEMATOCRIT 41.9 % (37.0-47.0); LYMPH # 1.2 10*3/uL (1.3-4.4); LYMPH % 22.4 % (27.0-41.0); MEAN CELL VOLUME 94.8 fl (81.0-99.0); MEAN CORPUSCULAR HGB 30.8 pg (27.0-31.0); MEAN CORPUSCULAR HGB CONC 32.5 g/dl (33.0-37.0); MEAN PLATELET VOLUME 9.4 fl (9.6-12.3); MONO # 0.6 10*3/uL (0.1-1.0); MONO % 11.5 % (3.0-9.0); NEUT # 3.3 10*3/uL (2.3-7.9); NEUT % 60.8 % (47.0-73.0); PLATELET COUNT AUTOMATED 244 10*3/uL (130-400); RED BLOOD COUNT 4.42 10*6/uL (4.10-5.10); RED CELL DISTRI WIDTH 14.2 % (0-14.5); WHITE BLOOD COUNT 5.5 10*3/uL (4.8-10.8)
[2022-11-16 17:56] LABS: POTASSIUM 4.6 mmol/L (3.4-5.1); TOTAL PROTEIN 7.9 gm/dL (6.0-8.0)
== END | disposition home or self-care (01) ==
LOC: LAB 16:58
PROVIDERS: ATTEND Family Medicine
DX: M47.816 Spondylosis without myelopathy or radiculopathy, lumbar region (principal); M25.78 Osteophyte, vertebrae; M48.061 Spinal stenosis, lumbar region without neurogenic claudication; R73.9 Hyperglycemia, unspecified

== ENCOUNTER → 2023-01-03 | Outpatient (CLI) | payer OTHER, MEDICAID ==
[2023-01-03 14:29] LABS: INTERNATIONAL NORM RATIO 1.2 (2.0-3.5)
== END | disposition home or self-care (01) ==
LOC: LAB 13:47
PROVIDERS: Internal Medicine Cardiovascular Disease; ATTEND Family Medicine
DX: I48.91 Unspecified atrial fibrillation (principal)

== ENCOUNTER → 2023-01-11 | Outpatient (CLI) | payer OTHER, MEDICAID | END | disposition home or self-care (01) | LOC: RAD 07:59 | PROVIDERS: ATTEND Family Medicine | DX: M85.852 Other specified disorders of bone density and structure, left thigh (principal); Z78.0 Asymptomatic menopausal state ==

== ENCOUNTER → 2023-01-16 | Outpatient (CLI) | payer MEDICARE, MEDICAID | END | disposition home or self-care (01) | LOC: LAB 13:01 | PROVIDERS: ATTEND Internal Medicine Cardiovascular Disease | DX: I48.91 Unspecified atrial fibrillation (principal) ==

== ENCOUNTER → 2023-01-26 | Outpatient (CLI) | payer OTHER, MEDICAID ==
[2023-01-26 14:28] LABS: INTERNATIONAL NORM RATIO 1.3 (2.0-3.5)
== END | disposition home or self-care (01) ==
LOC: LAB 13:58
PROVIDERS: ATTEND Internal Medicine Cardiovascular Disease
DX: I48.91 Unspecified atrial fibrillation (principal)

== ENCOUNTER → 2023-01-30 | Outpatient (CLI) | payer OTHER, MEDICAID ==
[2023-01-30 15:06] LABS: INTERNATIONAL NORM RATIO 2.9 (2.0-3.5)
== END | disposition home or self-care (01) ==
LOC: LAB 14:29
PROVIDERS: ATTEND Internal Medicine Cardiovascular Disease
DX: I48.91 Unspecified atrial fibrillation (principal)

== ENCOUNTER → 2023-02-05 | Outpatient (CLI) | payer OTHER, MEDICAID ==
[2023-02-05 17:23] LABS: INTERNATIONAL NORM RATIO 2.4 (2.0-3.5)
== END | disposition home or self-care (01) ==
LOC: LAB 16:45
PROVIDERS: ATTEND Internal Medicine Cardiovascular Disease
DX: I48.91 Unspecified atrial fibrillation (principal)

== ENCOUNTER → 2023-02-15 | Outpatient (CLI) | payer MEDICARE, MEDICAID ==
[2023-02-15 08:53] LABS: INTERNATIONAL NORM RATIO 1.1 (2.0-3.5)
== END | disposition home or self-care (01) ==
LOC: LAB 08:23
PROVIDERS: ATTEND Internal Medicine Cardiovascular Disease
DX: I48.91 Unspecified atrial fibrillation (principal)

== ENCOUNTER → 2023-02-20 | Outpatient (CLI) | payer MEDICARE, MEDICAID ==
[2023-02-20 13:07] LABS: INTERNATIONAL NORM RATIO 2.8 (2.0-3.5)
== END | disposition home or self-care (01) ==
LOC: LAB 12:28
PROVIDERS: ATTEND Internal Medicine Cardiovascular Disease
DX: I48.91 Unspecified atrial fibrillation (principal)

== ENCOUNTER → 2023-02-27 | Outpatient (CLI) | payer MEDICARE, MEDICAID ==
[2023-02-27 12:02] LABS: INTERNATIONAL NORM RATIO 2.8 (2.0-3.5)
== END | disposition home or self-care (01) ==
LOC: LAB 11:35
PROVIDERS: ATTEND Internal Medicine Cardiovascular Disease
DX: I48.91 Unspecified atrial fibrillation (principal)

== ENCOUNTER → 2023-03-05 | Outpatient (CLI) | payer MEDICARE, MEDICAID ==
[2023-03-05 09:01] LABS: INTERNATIONAL NORM RATIO 1.5 (2.0-3.5)
== END | disposition home or self-care (01) ==
LOC: LAB 08:35
PROVIDERS: ATTEND Internal Medicine Cardiovascular Disease
DX: I48.91 Unspecified atrial fibrillation (principal)

== ENCOUNTER → 2023-03-12 | Outpatient (CLI) | payer MEDICARE, MEDICAID ==
[2023-03-12 12:55] LABS: INTERNATIONAL NORM RATIO 3.7 (2.0-3.5)
== END | disposition home or self-care (01) ==
LOC: LAB 12:12
PROVIDERS: ATTEND Internal Medicine Cardiovascular Disease
DX: I48.91 Unspecified atrial fibrillation (principal)

== ENCOUNTER → 2023-03-14 | Outpatient (CLI) | payer MEDICARE, MEDICAID ==
[2023-03-14 13:35] LABS: INTERNATIONAL NORM RATIO 3.1 (2.0-3.5)
== END | disposition home or self-care (01) ==
LOC: LAB 13:04
PROVIDERS: ATTEND Internal Medicine Cardiovascular Disease
DX: I48.91 Unspecified atrial fibrillation (principal)

== ENCOUNTER → 2023-03-19 | Outpatient (CLI) | payer MEDICARE, MEDICAID ==
[2023-03-19 12:48] LABS: INTERNATIONAL NORM RATIO 1.9 (2.0-3.5)
== END | disposition home or self-care (01) ==
LOC: LAB 12:07
PROVIDERS: Internal Medicine Cardiovascular Disease; ATTEND Family Medicine
DX: I48.91 Unspecified atrial fibrillation (principal)

== ENCOUNTER → 2023-04-03 | Outpatient (CLI) | payer MEDICARE, MEDICAID ==
[2023-04-03 16:25] LABS: INTERNATIONAL NORM RATIO 1.1 (2.0-3.5)
== END | disposition home or self-care (01) ==
LOC: LAB 15:56
PROVIDERS: ATTEND Internal Medicine Cardiovascular Disease
DX: I48.91 Unspecified atrial fibrillation (principal)

== ENCOUNTER → 2023-04-11 | Outpatient (CLI) | payer MEDICARE, MEDICAID ==
[2023-04-11 13:32] LABS: BASO # 0.1 10*3/uL (0.0-0.1); BASO % 0.9 % (0.0-1.0); EOS # 0.3 10*3/uL (0.0-0.4); EOS % 6.2 % (1.0-4.0); HEMATOCRIT 41.2 % (37.0-47.0); LYMPH # 1.1 10*3/uL (1.3-4.4); LYMPH % 21.2 % (27.0-41.0); MEAN CELL VOLUME 96.5 fl (81.0-99.0); MEAN CORPUSCULAR HGB 31.6 pg (27.0-31.0); MEAN CORPUSCULAR HGB CONC 32.8 g/dl (33.0-37.0); MEAN PLATELET VOLUME 9.3 fl (9.6-12.3); MONO # 0.5 10*3/uL (0.1-1.0); MONO % 8.8 % (3.0-9.0); NEUT # 3.3 10*3/uL (2.3-7.9); NEUT % 62.5 % (47.0-73.0); PLATELET COUNT AUTOMATED 214 10*3/uL (130-400); RED BLOOD COUNT 4.27 10*6/uL (4.10-5.10); RED CELL DISTRI WIDTH 13.9 % (0-14.5); WHITE BLOOD COUNT 5.3 10*3/uL (4.8-10.8)
[2023-04-11 14:01] LABS: POTASSIUM 4.7 mmol/L (3.4-5.1); THYROXINE (T4) TOTAL 5.6 ug/dl (4.5-10.9); TOTAL PROTEIN 7.4 gm/dL (6.0-8.0)
== END | disposition home or self-care (01) ==
LOC: LAB 13:04
PROVIDERS: ATTEND Family Medicine
DX: E78.00 Pure hypercholesterolemia, unspecified (principal)

== ENCOUNTER → 2023-04-24 | Outpatient (CLI) | payer OTHER, MEDICAID | END | disposition home or self-care (01) | LOC: LAB 11:52 | PROVIDERS: ATTEND Family Medicine | DX: E11.9 Type 2 diabetes mellitus without complications (principal) ==

== ENCOUNTER → 2023-07-09 | Outpatient (CLI) | payer MEDICARE, MEDICAID ==
[2023-07-09 11:57] LABS: BASO # 0.1 10*3/uL (0.0-0.1); EOS # 0.4 10*3/uL (0.0-0.4); HEMATOCRIT 41.2 % (37.0-47.0); LYMPH # 1.2 10*3/uL (1.3-4.4); MEAN CELL VOLUME 99.3 fl (81.0-99.0); MEAN CORPUSCULAR HGB 30.4 pg (27.0-31.0); MEAN CORPUSCULAR HGB CONC 30.6 g/dl (33.0-37.0); MEAN PLATELET VOLUME 9.4 fl (9.6-12.3); MONO # 0.5 10*3/uL (0.1-1.0); MONO % 8.5 % (3.0-9.0); NEUT # 3.6 10*3/uL (2.3-7.9); PLATELET COUNT AUTOMATED 248 10*3/uL (130-400); RED BLOOD COUNT 4.15 10*6/uL (4.10-5.10); RED CELL DISTRI WIDTH 14.8 % (0-14.5); WHITE BLOOD COUNT 5.9 10*3/uL (4.8-10.8)
[2023-07-09 12:05] LABS: BILIRUBIN Negative (Negative); BLOOD Negative (Negative); CLARITY Cloudy (Clear); COLOR Yellow (Yellow); GLUCOSE Negative (Negative); KETONE Negative (Negative); LEUKO ESTERASE 2+ (Negative); NITRITE Negative (Negative)
[2023-07-09 12:13] LABS: URINE CREATININE RANDOM 148.81 mg/dL
[2023-07-09 12:31] LABS: BACTERIA 2+; EPITHELIAL CELLS 16-20; WBC TNTC wbc/hpf (0-5)
[2023-07-09 12:34] LABS: VITAMIN D, 25-HYDROXY 25.3 ng/mL (30-100)
[2023-07-09 13:32] LABS: BUN 20 mg/dl (9-23); CHLORIDE 107 mmol/L (98-107); POTASSIUM 4.4 mmol/L (3.4-5.1)
== END | disposition home or self-care (01) ==
LOC: LAB 11:31
PROVIDERS: ATTEND Internal Medicine Nephrology
DX: N18.30 Chronic kidney disease, stage 3 unspecified (principal); N25.81 Secondary hyperparathyroidism of renal origin; I48.91 Unspecified atrial fibrillation

== ENCOUNTER 2023-09-25 17:05 | Emergency (ER) | payer MEDICARE, MEDICAID ==
[~2023-09-25] VITALS: Ht 154.9 cm; Wt 112.9 kg
[2023-09-25 17:26] VITALS: BP 144/64
[2023-09-25 18:07] LABS: BASO # 0.1 10*3/uL (0.0-0.1); BASO % 0.7 % (0.0-1.0); EOS # 0.2 10*3/uL (0.0-0.4); EOS % 2.7 % (1.0-4.0); HEMATOCRIT 37.9 % (37.0-47.0); LYMPH # 1.5 10*3/uL (1.3-4.4); LYMPH % 21.2 % (27.0-41.0); MEAN CELL VOLUME 96.9 fl (81.0-99.0); MEAN CORPUSCULAR HGB 31.2 pg (27.0-31.0); MEAN CORPUSCULAR HGB CONC 32.2 g/dl (33.0-37.0); MONO # 0.6 10*3/uL (0.1-1.0); MONO % 8.7 % (3.0-9.0); NEUT # 4.6 10*3/uL (2.3-7.9); NEUT % 66.1 % (47.0-73.0); PLATELET COUNT AUTOMATED 237 10*3/uL (130-400); RED BLOOD COUNT 3.91 10*6/uL (4.10-5.10); WHITE BLOOD COUNT 6.9 10*3/uL (4.8-10.8)
[2023-09-25 18:23] LABS: ACT PARTIAL THROMBO TIME 58.1 SECONDS (20.0-32.1)
[2023-09-25 18:42] LABS: POTASSIUM 3.7 mmol/L (3.4-5.1)
== END 2023-09-25 19:54 | disposition home or self-care (01) ==
LOC: ED 17:05
PROVIDERS: Emergency Medicine
DX: R79.9 Abnormal finding of blood chemistry, unspecified (principal); Z88.8 Allergy status to other drugs, medicaments and biological substances; F32.A Depression, unspecified; M19.90 Unspecified osteoarthritis, unspecified site; I25.2 Old myocardial infarction; K21.9 Gastro-esophageal reflux disease without esophagitis; F41.9 Anxiety disorder, unspecified; G43.909 Migraine, unspecified, not intractable, without status migrainosus; R10.2 Pelvic and perineal pain; Z88.1 Allergy status to other antibiotic agents; Z91.041 Radiographic dye allergy status; Z88.6 Allergy status to analgesic agent; Z91.013 Allergy to seafood; Z90.49 Acquired absence of other specified parts of digestive tract; Z90.710 Acquired absence of both cervix and uterus; Z98.890 Other specified postprocedural states

== ENCOUNTER → 2023-09-26 | Outpatient (CLI) | payer MEDICARE, MEDICAID ==
[2023-09-26 11:57] LABS: BASO # 0.1 10*3/uL (0.0-0.1); BASO % 0.9 % (0.0-1.0); EOS # 0.2 10*3/uL (0.0-0.4); EOS % 3.4 % (1.0-4.0); LYMPH # 1.4 10*3/uL (1.3-4.4); LYMPH % 24.6 % (27.0-41.0); MEAN CELL VOLUME 96.2 fl (81.0-99.0); MEAN CORPUSCULAR HGB 30.5 pg (27.0-31.0); MEAN CORPUSCULAR HGB CONC 31.8 g/dl (33.0-37.0); MEAN PLATELET VOLUME 10.1 fl (9.6-12.3); MONO # 0.5 10*3/uL (0.1-1.0); MONO % 8.9 % (3.0-9.0); NEUT # 3.4 10*3/uL (2.3-7.9); PLATELET COUNT AUTOMATED 271 10*3/uL (130-400); RED BLOOD COUNT 4.16 10*6/uL (4.10-5.10); RED CELL DISTRI WIDTH 14.9 % (0-14.5); WHITE BLOOD COUNT 5.5 10*3/uL (4.8-10.8)
[2023-09-26 12:06] LABS: BILIRUBIN Negative (Negative); BLOOD Negative (Negative); CLARITY Clear (Clear); COLOR Yellow (Yellow); GLUCOSE Negative (Negative); KETONE Negative (Negative); LEUKO ESTERASE 1+ (Negative); NITRITE Negative (Negative); PH 5.5 (4.5-8.0); SPECIFIC GRAVITY 1.015 (1.001-1.030)
[2023-09-26 12:08] LABS: URINE CREATININE RANDOM 126.8 mg/dL
[2023-09-26 13:03] LABS: BACTERIA 1+
[2023-09-26 13:49] LABS: VITAMIN D, 25-HYDROXY 24.1 ng/mL (30-100)
== END | disposition home or self-care (01) ==
LOC: LAB 11:19
PROVIDERS: ATTEND Internal Medicine Nephrology
DX: N25.81 Secondary hyperparathyroidism of renal origin (principal); N18.30 Chronic kidney disease, stage 3 unspecified

== ENCOUNTER → 2023-12-07 | Outpatient (CLI) | payer OTHER ==
[2023-12-07 15:25] LABS: BASO # 0.1 10*3/uL (0.0-0.1); BASO % 1.1 % (0.0-1.0); EOS # 0.3 10*3/uL (0.0-0.4); EOS % 5.4 % (1.0-4.0); LYMPH # 1.4 10*3/uL (1.3-4.4); LYMPH % 24.8 % (27.0-41.0); MEAN CELL VOLUME 98.1 fl (81.0-99.0); MEAN CORPUSCULAR HGB 31.5 pg (27.0-31.0); MEAN CORPUSCULAR HGB CONC 32.1 g/dl (33.0-37.0); MEAN PLATELET VOLUME 9.5 fl (9.6-12.3); MONO # 0.6 10*3/uL (0.1-1.0); NEUT # 3.2 10*3/uL (2.3-7.9); NEUT % 58.3 % (47.0-73.0); PLATELET COUNT AUTOMATED 261 10*3/uL (130-400); RED BLOOD COUNT 4.28 10*6/uL (4.10-5.10); RED CELL DISTRI WIDTH 14.2 % (0-14.5); WHITE BLOOD COUNT 5.5 10*3/uL (4.8-10.8)
[2023-12-07 15:51] LABS: POTASSIUM 4.4 mmol/L (3.4-5.1); THYROXINE (T4) TOTAL 5.6 ug/dl (4.5-10.9); TOTAL PROTEIN 7.6 gm/dL (6.0-8.0)
== END ==
LOC: LAB 14:55
PROVIDERS: ATTEND Family Medicine
DX: E11.9 Type 2 diabetes mellitus without complications (principal); E03.9 Hypothyroidism, unspecified

== ENCOUNTER → 2023-12-26 | Outpatient (CLI) | payer OTHER ==
[2023-12-26 16:22] LABS: BASO # 0.1 10*3/uL (0.0-0.1); EOS # 0.4 10*3/uL (0.0-0.4); EOS % 6.4 % (1.0-4.0); HEMATOCRIT 38.4 % (37.0-47.0); LYMPH # 1.9 10*3/uL (1.3-4.4); LYMPH % 28.5 % (27.0-41.0); MEAN CELL VOLUME 94.6 fl (81.0-99.0); MEAN CORPUSCULAR HGB 31.3 pg (27.0-31.0); MEAN CORPUSCULAR HGB CONC 33.1 g/dl (33.0-37.0); MONO # 0.6 10*3/uL (0.1-1.0); MONO % 9.2 % (3.0-9.0); NEUT # 3.7 10*3/uL (2.3-7.9); NEUT % 54.6 % (47.0-73.0); PLATELET COUNT AUTOMATED 228 10*3/uL (130-400); RED BLOOD COUNT 4.06 10*6/uL (4.10-5.10); RED CELL DISTRI WIDTH 14.5 % (0-14.5); WHITE BLOOD COUNT 6.7 10*3/uL (4.8-10.8)
[2023-12-26 18:42] LABS: POTASSIUM 4.2 mmol/L (3.4-5.1); TOTAL PROTEIN 7.3 gm/dL (6.0-8.0)
== END | disposition home or self-care (01) ==
LOC: LAB 15:35
PROVIDERS: ATTEND Family Medicine
DX: E78.00 Pure hypercholesterolemia, unspecified (principal)

== ENCOUNTER → 2024-02-12 | Outpatient (CLI) | payer OTHER | END | disposition home or self-care (01) | LOC: CARD 00:54 | DX: I34.81 Nonrheumatic mitral (valve) annulus calcification (principal); I42.0 Dilated cardiomyopathy; I44.7 Left bundle-branch block, unspecified; Z95.828 Presence of other vascular implants and grafts ==

== ENCOUNTER → 2024-03-07 | Outpatient (CLI) | payer OTHER ==
[2024-03-07 08:10] LABS: THYROXINE (T4) TOTAL 5.8 ug/dl (4.5-10.9)
== END | disposition home or self-care (01) ==
LOC: LAB 07:04
PROVIDERS: ATTEND Family Medicine
DX: E03.9 Hypothyroidism, unspecified (principal)

== ENCOUNTER → 2024-05-08 | Outpatient (CLI) | payer OTHER | END | disposition home or self-care (01) | LOC: LAB 13:56 | PROVIDERS: ATTEND Family Medicine | DX: E11.9 Type 2 diabetes mellitus without complications (principal) ==

== ENCOUNTER 2024-05-24 16:48 | Emergency (ER) | payer OTHER ==
[~2024-05-24] VITALS: Ht 154.9 cm; Wt 105.7 kg
[2024-05-24 17:15] VITALS: BP 117/81
[2024-05-24] MEDS ORDERED: Acetaminophen/Hydrocodone 5 MG/325 MG TABLET PO ONE (18:45)
== END 2024-05-24 20:10 | disposition home or self-care (01) ==
LOC: ED 16:48
DX: S90.32XA Contusion of left foot, initial encounter (principal); F41.9 Anxiety disorder, unspecified; F32.A Depression, unspecified; K21.9 Gastro-esophageal reflux disease without esophagitis; E78.5 Hyperlipidemia, unspecified; I10 Essential (primary) hypertension; E44.0 Moderate protein-calorie malnutrition; E66.9 Obesity, unspecified; Z88.7 Allergy status to serum and vaccine; Z88.8 Allergy status to other drugs, medicaments and biological substances; Z88.1 Allergy status to other antibiotic agents; Z91.041 Radiographic dye allergy status; Z91.013 Allergy to seafood; Z79.899 Other long term (current) drug therapy; Z79.01 Long term (current) use of anticoagulants; Z68.30 Body mass index [BMI] 30.0-30.9, adult; Z90.49 Acquired absence of other specified parts of digestive tract; Z98.890 Other specified postprocedural states; Z90.710 Acquired absence of both cervix and uterus; W20.8XXA Other cause of strike by thrown, projected or falling object, initial encounter; Y93.89 Activity, other specified; Y92.89 Other specified places as the place of occurrence of the external cause; Y99.8 Other external cause status

== ENCOUNTER → 2024-06-23 | Outpatient (CLI) | payer OTHER ==
[2024-06-23 14:05] LABS: BASO # 0.1 10*3/uL (0.0-0.1); BASO % 0.9 % (0.0-1.0); EOS # 0.3 10*3/uL (0.0-0.4); EOS % 4.8 % (1.0-4.0); HEMATOCRIT 38.3 % (37.0-47.0); MEAN CORPUSCULAR HGB 30.5 pg (27.0-31.0); MEAN CORPUSCULAR HGB CONC 32.1 g/dl (33.0-37.0); MEAN PLATELET VOLUME 9.6 fl (9.6-12.3); MONO # 0.5 10*3/uL (0.1-1.0); MONO % 9.8 % (3.0-9.0); NEUT # 3.3 10*3/uL (2.3-7.9); NEUT % 60.7 % (47.0-73.0); PLATELET COUNT AUTOMATED 237 10*3/uL (130-400); RED BLOOD COUNT 4.03 10*6/uL (4.10-5.10); WHITE BLOOD COUNT 5.4 10*3/uL (4.8-10.8)
[2024-06-23 14:57] LABS: ALKALINE PHOSPHATASE 77 U/L (46-116); BUN 24 mg/dl (9-23); CHLORIDE 104 mmol/L (98-107); CHOLESTEROL 268 mg/dL (<200); LDL CHOLESTEROL 166 mg/dL (9-159); POTASSIUM 4.1 mmol/L (3.4-5.1); SGPT/ALT 10 U/L (5-49); THYROXINE (T4) TOTAL 6.2 ug/dl (4.5-10.9); TOTAL PROTEIN 7.1 gm/dL (6.0-8.0); TRIGLYCERIDES 313 mg/dl (<150)
== END | disposition home or self-care (01) ==
LOC: LAB 13:39
PROVIDERS: ATTEND Family Medicine
DX: E03.9 Hypothyroidism, unspecified (principal); I10 Essential (primary) hypertension; E78.00 Pure hypercholesterolemia, unspecified

== ENCOUNTER → 2024-07-04 | Outpatient (CLI) | payer OTHER ==
[2024-07-04 17:52] LABS: BASO # 0.1 10*3/uL (0.0-0.1); BASO % 0.9 % (0.0-1.0); EOS # 0.2 10*3/uL (0.0-0.4); EOS % 3.2 % (1.0-4.0); HEMATOCRIT 40.3 % (37.0-47.0); MEAN CELL VOLUME 94.6 fl (81.0-99.0); MEAN CORPUSCULAR HGB CONC 31.8 g/dl (33.0-37.0); MEAN PLATELET VOLUME 9.2 fl (9.6-12.3); MONO # 0.4 10*3/uL (0.1-1.0); MONO % 6.8 % (3.0-9.0); NEUT # 3.7 10*3/uL (2.3-7.9); PLATELET COUNT AUTOMATED 271 10*3/uL (130-400); RED BLOOD COUNT 4.26 10*6/uL (4.10-5.10); RED CELL DISTRI WIDTH 13.3 % (0-14.5); WHITE BLOOD COUNT 5.9 10*3/uL (4.8-10.8)
[2024-07-04 17:53] LABS: BILIRUBIN Negative (Negative); BLOOD Negative (Negative); CLARITY Clear (Clear); COLOR Yellow (Yellow); GLUCOSE Negative (Negative); KETONE Negative (Negative); LEUKO ESTERASE Negative (Negative); NITRITE Negative (Negative); PH 5.5 (4.5-8.0)
[2024-07-04 18:01] LABS: BACTERIA 1+; MUCOUS TRACE; RBC 0-2 rbc/hpf (0-2)
[2024-07-04 18:17] LABS: POTASSIUM 3.9 mmol/L (3.4-5.1)
== END | disposition home or self-care (01) ==
LOC: LAB 17:05
PROVIDERS: ATTEND Internal Medicine Nephrology
DX: N18.30 Chronic kidney disease, stage 3 unspecified (principal); N25.81 Secondary hyperparathyroidism of renal origin; D63.1 Anemia in chronic kidney disease

== ENCOUNTER → 2024-09-05 | Outpatient (CLI) | payer OTHER | END | disposition home or self-care (01) | LOC: LAB 12:48 | PROVIDERS: ATTEND Family Medicine | DX: E55.9 Vitamin D deficiency, unspecified (principal) ==

== ENCOUNTER 2024-09-26 09:30 | Emergency (ER) | payer OTHER ==
[~2024-09-26] VITALS: Wt 106.6 kg
[2024-09-26 09:35] VITALS: BP 123/60
[2024-09-26] MEDS ORDERED: Synthroid,Levo75 MCG PO (09:49)
[2024-09-26] MEDS ORDERED: DICLOFENAC SODI50 GM T (09:49)
[2024-09-26] MEDS ORDERED: LASIX40 MG PO (09:49)
[2024-09-26] MEDS ORDERED: JANUVIA100 MG PO (09:50)
[2024-09-26] MEDS ORDERED: Coumadin2.5 MG PO (09:50)
[2024-09-26] MEDS ORDERED: Coumadin5 MG PO (09:52)
[2024-09-26] MEDS ORDERED: predniSONE 20 MG TAB PO ONE (09:55)
[2024-09-26] MEDS ORDERED: Acetaminophen/Oxycodone 5 MG/325 MG TABLET PO ONE (09:55)
[2024-09-26] MEDS ORDERED: PERCOCET 5-3251 EACH PO (10:43)
[2024-09-26] MEDS ORDERED: PREDNISONE20 M1 PO (10:43)
== END 2024-09-26 10:53 | disposition home or self-care (01) ==
LOC: ED 09:30
DX: S83.91XA Sprain of unspecified site of right knee, initial encounter (principal); M10.071 Idiopathic gout, right ankle and foot; M79.671 Pain in right foot; M79.645 Pain in left finger(s); E11.9 Type 2 diabetes mellitus without complications; I10 Essential (primary) hypertension; E78.5 Hyperlipidemia, unspecified; Z88.7 Allergy status to serum and vaccine; Z88.8 Allergy status to other drugs, medicaments and biological substances; Z88.1 Allergy status to other antibiotic agents; Z91.041 Radiographic dye allergy status; Z91.013 Allergy to seafood; Z79.899 Other long term (current) drug therapy; Z79.01 Long term (current) use of anticoagulants; Z90.49 Acquired absence of other specified parts of digestive tract; Z90.710 Acquired absence of both cervix and uterus; Z95.0 Presence of cardiac pacemaker; X50.1XXA Overexertion from prolonged static or awkward postures, initial encounter; Y93.89 Activity, other specified; Y92.89 Other specified places as the place of occurrence of the external cause; Y99.8 Other external cause status

== ENCOUNTER 2024-10-02 19:44 | Emergency (ER) | payer OTHER ==
[~2024-10-02] VITALS: Ht 154.9 cm; Wt 106.6 kg
[2024-10-02 19:44] VITALS: BP 148/64
[~2024-10-02 19:44] MED LIST changes: +Coumadin2.5 MG PO; +DICLOFENAC SODI50 GM T; +JANUVIA100 MG PO; +PERCOCET 5-3251 EACH PO; +PREDNISONE20 M1 PO; +Synthroid,Levo75 MCG PO
== END 2024-10-02 22:00 | disposition home or self-care (01) ==
LOC: ED 19:44
DX: S00.83XA Contusion of other part of head, initial encounter (principal); S20.212A Contusion of left front wall of thorax, initial encounter; Z88.7 Allergy status to serum and vaccine; Z88.8 Allergy status to other drugs, medicaments and biological substances; Z88.1 Allergy status to other antibiotic agents; Z91.041 Radiographic dye allergy status; Z91.013 Allergy to seafood; Z79.899 Other long term (current) drug therapy; Z79.01 Long term (current) use of anticoagulants; Z90.49 Acquired absence of other specified parts of digestive tract; Z90.710 Acquired absence of both cervix and uterus; Z98.890 Other specified postprocedural states; Z95.0 Presence of cardiac pacemaker; W18.09XA Striking against other object with subsequent fall, initial encounter; Y93.89 Activity, other specified; Y92.096 Garden or yard of other non-institutional residence as the place of occurrence of the external cause; Y99.8 Other external cause status

== ENCOUNTER → 2024-10-13 | Outpatient (CLI) | payer OTHER ==
[2024-10-13 15:27] LABS: BASO % 0.4 % (0.0-1.0); EOS # 0.1 10*3/uL (0.0-0.4); EOS % 1.8 % (1.0-4.0); HEMATOCRIT 37.2 % (37.0-47.0); MEAN CELL VOLUME 93.7 fl (81.0-99.0); MEAN PLATELET VOLUME 9.5 fl (9.6-12.3); MONO # 0.7 10*3/uL (0.1-1.0); MONO % 8.7 % (3.0-9.0); NEUT # 5.5 10*3/uL (2.3-7.9); NEUT % 70.7 % (47.0-73.0); PLATELET COUNT AUTOMATED 230 10*3/uL (130-400); RED BLOOD COUNT 3.97 10*6/uL (4.10-5.10); RED CELL DISTRI WIDTH 13.9 % (0-14.5); WHITE BLOOD COUNT 7.8 10*3/uL (4.8-10.8)
[2024-10-13 16:21] LABS: ALKALINE PHOSPHATASE 74 U/L (46-116); BUN 36 mg/dl (9-23); CHLORIDE 100 mmol/L (98-107); POTASSIUM 4.1 mmol/L (3.4-5.1); SGPT/ALT 15 U/L (5-49)
== END | disposition home or self-care (01) ==
LOC: LAB 15:06
PROVIDERS: Family Medicine; ATTEND Internal Medicine Clinical Cardiac Electrophysiology
DX: I44.7 Left bundle-branch block, unspecified (principal); I42.0 Dilated cardiomyopathy; I10 Essential (primary) hypertension; E11.9 Type 2 diabetes mellitus without complications; Z95.810 Presence of automatic (implantable) cardiac defibrillator

== ENCOUNTER 2025-01-07 20:25 | Emergency (ER) | payer OTHER ==
[~2025-01-07] VITALS: Ht 154.9 cm; Wt 105.7 kg
[2025-01-07 20:25] VITALS: BP 120/56
[2025-01-07] MEDS ORDERED: COLCHICINE 0.6 MG TAB PO ONE (21:00)
[2025-01-07] MEDS ORDERED: Dexamethasone Sodium Phospha 20 MG/5 ML VIAL IM ONE (21:00)
[2025-01-07] MEDS ORDERED: COLCHICINE0.6 M2 PO (21:04)
[2025-01-07] MEDS ORDERED: PREDNISONE20 M1 PO (21:04)
[2025-01-07] MEDS ORDERED: PERCOCET 5-3251 EACH PO (21:04)
[2025-01-07] MEDS ORDERED: Ondansetron4 MG PO (21:04)
[2025-01-07] MEDS ORDERED: Ondansetron 4 MG 2 TAB ED PACK PO SCH (21:05)
[2025-01-07] MEDS ORDERED: Acetaminophen/Oxycodone 5 MG/325 MG TABLET PO PRN (21:05)
[2025-01-07] MEDS ORDERED: COLCHICINE 0.6 MG TAB PO SCH (22:00)
== END 2025-01-07 21:25 | disposition home or self-care (01) ==
LOC: ED 20:25
DX: M10.042 Idiopathic gout, left hand (principal); G62.9 Polyneuropathy, unspecified; Z79.01 Long term (current) use of anticoagulants; Z88.7 Allergy status to serum and vaccine; Z88.8 Allergy status to other drugs, medicaments and biological substances; Z91.041 Radiographic dye allergy status; Z91.013 Allergy to seafood; Z88.1 Allergy status to other antibiotic agents; Z79.899 Other long term (current) drug therapy; Z90.49 Acquired absence of other specified parts of digestive tract; Z98.890 Other specified postprocedural states; Z90.711 Acquired absence of uterus with remaining cervical stump

== ENCOUNTER → 2025-01-13 | Outpatient (CLI) | payer OTHER ==
[~2025-01-13] MED LIST changes: +COLCHICINE0.6 M2 PO; +Ondansetron4 MG PO
[2025-01-13 10:01] LABS: BASO % 0.4 % (0.0-1.0); EOS # 0.1 10*3/uL (0.0-0.4); EOS % 0.8 % (1.0-4.0); HEMATOCRIT 38.2 % (37.0-47.0); MEAN CORPUSCULAR HGB 29.5 pg (27.0-31.0); MEAN CORPUSCULAR HGB CONC 32.5 g/dl (33.0-37.0); MONO # 0.6 10*3/uL (0.1-1.0); MONO % 6.4 % (3.0-9.0); NEUT # 6.6 10*3/uL (2.3-7.9); PLATELET COUNT AUTOMATED 386 10*3/uL (130-400); RED CELL DISTRI WIDTH 13.3 % (0-14.5); WHITE BLOOD COUNT 10.1 10*3/uL (4.8-10.8)
[2025-01-13 10:42] LABS: ALKALINE PHOSPHATASE 80 U/L (46-116); BUN 46 mg/dl (9-23); CHLORIDE 102 mmol/L (98-107); POTASSIUM 3.9 mmol/L (3.4-5.1); SGPT/ALT 16 U/L (5-49); TOTAL PROTEIN 7.5 gm/dL (6.0-8.0)
== END | disposition home or self-care (01) ==
LOC: LAB 09:39
PROVIDERS: ATTEND Family Medicine
DX: E11.9 Type 2 diabetes mellitus without complications (principal); N19 Unspecified kidney failure

== ENCOUNTER → 2025-01-29 | Outpatient (CLI) | payer OTHER | END | disposition home or self-care (01) | LOC: LAB 10:46 | PROVIDERS: ATTEND Internal Medicine Cardiovascular Disease | DX: I48.91 Unspecified atrial fibrillation (principal) ==

== ENCOUNTER → 2025-02-13 | Outpatient (CLI) | payer OTHER | LOC: LAB 15:45 | PROVIDERS: ATTEND Internal Medicine Cardiovascular Disease | DX: I48.91 Unspecified atrial fibrillation (principal) ==

== ENCOUNTER → 2025-02-19 | Outpatient (CLI) | payer OTHER | END | disposition home or self-care (01) | LOC: LAB 14:56 | PROVIDERS: ATTEND Internal Medicine Cardiovascular Disease | DX: I48.91 Unspecified atrial fibrillation (principal) ==

== ENCOUNTER → 2025-03-04 | Outpatient (CLI) | payer OTHER | END | disposition home or self-care (01) | LOC: LAB 12:11 | PROVIDERS: ATTEND Internal Medicine Cardiovascular Disease | DX: I48.91 Unspecified atrial fibrillation (principal) ==

== ENCOUNTER 2025-03-12 07:56 | Emergency (ER) | payer OTHER ==
[~2025-03-12] VITALS: Ht 154.9 cm; Wt 103.9 kg
[2025-03-12 08:10] VITALS: BP 133/63
[2025-03-12] MEDS ORDERED: predniSONE 20 MG TAB PO ONE (08:20)
[2025-03-12] MEDS ORDERED: Acetaminophen/Oxycodone 5 MG/325 MG TABLET PO ONE (08:20)
[2025-03-12 08:50] LABS: BASO # 0.1 10*3/uL (0.0-0.1); BASO % 0.6 % (0.0-1.0); EOS # 0.3 10*3/uL (0.0-0.4); EOS % 3.6 % (1.0-4.0); MEAN CELL VOLUME 93.2 fl (81.0-99.0); MEAN CORPUSCULAR HGB 29.5 pg (27.0-31.0); MEAN PLATELET VOLUME 9.2 fl (9.6-12.3); MONO # 0.9 10*3/uL (0.1-1.0); MONO % 9.7 % (3.0-9.0); NEUT # 6.5 10*3/uL (2.3-7.9); NEUT % 72.9 % (47.0-73.0); NUCLEATED RED BLOOD CELL 0.0 % (0.0-0.0); NUCLEATED RED BLOOD CELL 0.0 10*3/uL (0.0-0.0); PLATELET COUNT AUTOMATED 283 10*3/uL (130-400); RED CELL DISTRI WIDTH 13.8 % (0-14.5)
[2025-03-12 09:08] LABS: BUN 32.0 mg/dl (9-23)
== END 2025-03-12 09:06 | disposition home or self-care (01) ==
LOC: ED 07:56
PROVIDERS: Emergency Medicine
DX: M25.532 Pain in left wrist (principal); F32.A Depression, unspecified; F41.9 Anxiety disorder, unspecified; Z88.7 Allergy status to serum and vaccine; Z88.8 Allergy status to other drugs, medicaments and biological substances; Z88.6 Allergy status to analgesic agent; Z91.041 Radiographic dye allergy status; Z91.013 Allergy to seafood; Z79.899 Other long term (current) drug therapy; Z90.49 Acquired absence of other specified parts of digestive tract; Z90.710 Acquired absence of both cervix and uterus; Z98.890 Other specified postprocedural states

== ENCOUNTER 2025-04-17 11:41 | Emergency (ER) | payer OTHER, MEDICAID ==
[~2025-04-17] VITALS: Wt 99.8 kg
[2025-04-17] MEDS ORDERED: Dexamethasone Sodium Phospha 10 MG/1 ML VIAL IM ONE (12:10)
[2025-04-17] MEDS ORDERED: Dexamethasone Sodium Phospha 20 MG/5 ML VIAL IM ONE (12:10)
[2025-04-17] MEDS ORDERED: Acetaminophen/Oxycodone 5 MG/325 MG TABLET PO ONE (12:10)
[2025-04-17 12:27] LABS: BASO # 0.1 10*3/uL (0.0-0.1); BASO % 0.6 % (0.0-1.0); EOS # 0.1 10*3/uL (0.0-0.4); EOS % 1.4 % (1.0-4.0); MEAN CELL VOLUME 93.9 fl (81.0-99.0); MEAN CORPUSCULAR HGB 29.8 pg (27.0-31.0); MEAN PLATELET VOLUME 9.0 fl (9.6-12.3); MONO # 0.7 10*3/uL (0.1-1.0); MONO % 7.8 % (3.0-9.0); NEUT # 6.5 10*3/uL (2.3-7.9); NEUT % 77.5 % (47.0-73.0); NUCLEATED RED BLOOD CELL 0.0 % (0.0-0.0); NUCLEATED RED BLOOD CELL 0.0 10*3/uL (0.0-0.0); PLATELET COUNT AUTOMATED 381 10*3/uL (130-400); RED CELL DISTRI WIDTH 13.7 % (0-14.5)
[2025-04-17 12:49] LABS: BUN 22.0 mg/dl (9-23)
[2025-04-17] MEDS ORDERED: POTASSIUM CHLORIDE 20 MEQ TAB PO ONE (12:55)
[2025-04-17 13:12] VITALS: BP 112/61
[2025-04-17] MEDS ORDERED: PERCOCET 5-3251 EACH PO (13:25)
[2025-04-17] MEDS ORDERED: PREDNISONE20 M1 PO (13:25)
== END 2025-04-17 13:33 | disposition home or self-care (01) ==
LOC: ED 11:41
PROVIDERS: Nurse Practitioner Family
DX: S46.912A Strain of unspecified muscle, fascia and tendon at shoulder and upper arm level, left arm, initial encounter (principal); M10.042 Idiopathic gout, left hand; E87.6 Hypokalemia; G62.9 Polyneuropathy, unspecified; Z88.4 Allergy status to anesthetic agent; Z88.8 Allergy status to other drugs, medicaments and biological substances; Z88.1 Allergy status to other antibiotic agents; Z91.013 Allergy to seafood; Z91.041 Radiographic dye allergy status; Z79.899 Other long term (current) drug therapy; Z90.49 Acquired absence of other specified parts of digestive tract; Z98.890 Other specified postprocedural states; Z90.710 Acquired absence of both cervix and uterus; X50.1XXA Overexertion from prolonged static or awkward postures, initial encounter; Y93.89 Activity, other specified; Y92.89 Other specified places as the place of occurrence of the external cause; Y99.8 Other external cause status

== ENCOUNTER → 2025-05-28 | Outpatient (CLI) | payer OTHER, MEDICAID | END | disposition home or self-care (01) | LOC: LAB 14:34 | PROVIDERS: ATTEND Internal Medicine Cardiovascular Disease | DX: I48.91 Unspecified atrial fibrillation (principal) ==

== ENCOUNTER → 2025-06-04 | Outpatient (CLI) | payer OTHER, MEDICAID | END | disposition home or self-care (01) | LOC: LAB 11:07 | PROVIDERS: ATTEND Internal Medicine Cardiovascular Disease | DX: I48.91 Unspecified atrial fibrillation (principal) ==

== ENCOUNTER 2025-06-21 17:43 | Emergency (ER) | payer OTHER, MEDICAID ==
[~2025-06-21] VITALS: Ht 154.9 cm; Wt 97.1 kg
[2025-06-21 17:56] VITALS: BP 118/63
[2025-06-21] MEDS ORDERED: PREDNISONE20 M1 PO (18:53)
[2025-06-21] MEDS ORDERED: COLCHICINE 0.6 MG TAB PO ONE (18:55)
== END 2025-06-21 19:06 | disposition home or self-care (01) ==
LOC: ED 17:43
DX: S09.90XA Unspecified injury of head, initial encounter (principal); F32.A Depression, unspecified; M19.90 Unspecified osteoarthritis, unspecified site; I25.2 Old myocardial infarction; G43.909 Migraine, unspecified, not intractable, without status migrainosus; F41.9 Anxiety disorder, unspecified; Z90.710 Acquired absence of both cervix and uterus; Z90.49 Acquired absence of other specified parts of digestive tract; Z88.8 Allergy status to other drugs, medicaments and biological substances; Z91.013 Allergy to seafood; W19.XXXA Unspecified fall, initial encounter; Y93.89 Activity, other specified; Y92.89 Other specified places as the place of occurrence of the external cause; Y99.8 Other external cause status

== ENCOUNTER → 2025-06-22 | Outpatient (CLI) | payer OTHER, MEDICAID ==
[2025-06-22 16:42] LABS: BUN 26.0 mg/dl (9-23); LDL CHOLESTEROL 143.0 mg/dL (9-159); SGPT/ALT 11.0 U/L (5-49); THYROXINE (T4) TOTAL 8.6 ug/dl (4.5-10.9)
== END | disposition home or self-care (01) ==
LOC: LAB 15:37
PROVIDERS: ATTEND Family Medicine
DX: E11.22 Type 2 diabetes mellitus with diabetic chronic kidney disease (principal); N18.1 Chronic kidney disease, stage 1; I34.0 Nonrheumatic mitral (valve) insufficiency